=== PATIENT | male | born 1955 | race Caucasian/White ===

== ENCOUNTER 2017-05-26 13:22 | Inpatient (IN) ==
[2017-05-26 13:54] LABS: Basophils % 0.2 % (0.0-0.8); Hematocrit 36.7 VOL% (42.0-52.0); Hemoglobin 13.1 GM/DL (14.0-18.0); Immature Granulocytes % 0.7 %; Immature Granulocytes Absolute 0.13 #; Lymphocytes % 5.8 % (21.2-54.2); Mean Corpuscular HGB Conc 35.7 GM/DL (32-36); Mean Corpuscular Hemoglobin 32 PG (27-34); Mean Corpuscular Volume 89.5 FL (87-102); Mean Platelet Volume 9.3 FL (9.6-12.0); Monocytes % 5.7 % (1.7-12.7); Neutrophils # 15.6 10*3/uL (1.4-7.4); Neutrophils % 87.6 % (38.7-73.9); Platelet Count 192 T/CUMM (130-400); Red Cell Distribution Width 14.1 % (9.3-17.3); White Blood Count 17.8 T/CUMM (4-12)
[2017-05-26 14:34] LABS: Albumin 3.5 G/DL (3.4-5.0); Calcium 9.4 MG/DL (8.5-10.1); Osmolality,Calculated 260.1 MOS/KG (273-304); Potassium 3.5 MMOL/L (3.5-5.1); Total Protein 7.5 G/DL (6.4-8.3)
[2017-05-26] MEDS ORDERED: SODIUM CHLORIDE 0.9% 1,000 ML IV STA (14:44)
--- NOTE | 2017-05-26 14:46 | Emergency Department Note ---
Arrival - Arrival Chief Complaint: Nausea/Vomiting/Diarrhea Stated Complaint: weakness,n/v,can't hardly walk ED Nursing Triage Note: PT C/O N/V/D OFF AND ON X1 MONTH. PT REPORTS LAST NIGHT HE BEGAN SHAKING ALL OVER X 45 MINUTES. PT C/O PAIN TO NECK/THROAT- PT HAS THROAT CANCER THAT DR PEDRO REMOVED 8 MONTHS AGO Mode of Arrival: Ambulatory Limitations: No Limitations Source: Patient Time Seen by Provider: 05/26/17 14:25 - History of Present Illness HPI Narrative: The patient complains of nausea, vomiting and diarrhea for at least a month. States he has become very weak and can hardly walk. He also complains of shortness of breath which sounds like it is chronic due to his COPD. He has had a cough productive of white and yellow sputum. He complains of sore throat for the past 3 weeks. He does not know if he has had fever but has had chills. Last night he felt cold and began to have episodes of rigors. 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 He finished this 5-6 months ago. He had an appointment with Dr. Pedro yesterday regarding his sore throat but he skipped this. Allergies/Adverse Reactions: Allergies Allergy/AdvReac Type Severity Reaction Status Date / Time No Known Allergies Allergy Verified 05/26/17 13:31 Home Medications: Home Medications Medication Instructions Recorded Confirmed Type Budesonide/Formoterol 160-4.5 2 puff INH BID PRN 07/21/15 10/11/16 History [Symbicort 160-4.5] Albuterol Inhaler [Proventil 1 puff INH Q6H PRN #1 inhaler 10/11/16 Rx Inhaler] Albuterol Inhaler [Proventil 2 puff INH Q4H PRN 10/11/16 10/11/16 History Inhaler] Levofloxacin Tab [Levaquin Tab] 500 mg PO Q24H #7 tablet 10/11/16 Rx Omeprazole [Prilosec] 20 mg PO DAILY 10/11/16 10/11/16 History Promethazine/Dextromethorphan 240 ml PO Q4H PRN 10/11/16 10/11/16 History [Promethazine-Dm Syrup] methylPREDNISolone DOSEPAK [Medrol 4 mg PO DIRECTED #1 packet 10/11/16 Rx Dosepak] Review of System - Review of System 12 point system: reviewed and no additional remarkable complaints except as stated - Review of System Constitutional: Present: chills, weakness, weight loss. Absent: diaphoresis, fever Head/Ears/Nose/Throat: Present: sore throat. Absent: nasal drainage Respiratory: Present: cough. Absent: respiratory distress, wheezing Cardiovascular: Present: dyspnea on exertion. Absent: chest pain, palpitations , orthopnea, edema Gastrointestinal: Present: nausea, vomiting, diarrhea. Absent: abdominal pain, constipation, hematemesis, melena, hematochezia Genitourinary male: Absent: dysuria, hematuria Neurological: Present: weakness. 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) Respiratory: History of: COPD, Pneumonia (X2), Lung Cancer (probable) Gastrointestinal: History of: GERD, GI Problems (ULCERS) Hematology: No history of: Blood Transfusion Reaction Other: History of: Cancer (vocal cord cancer) No history of: Anesthesia Reactions - Surgical History Neurologic Surgeries: Surgical HX of: Cerebral Hemorrhage (SUBDURAL HEMATOMA 1993), Neurologic Surgery (SUBDURAL HEMATOMA) HEENT Surgeries: Surgical HX of: Tonsilectomy & Adenoidectomy Abdominal Surgeries: Surgical HX of: Abdominal Surgery, EGD, Hernia Repair (X2 AT AGE 9) Orthopedic Surgeries: Surgical HX of;: Orthopedic Surgery (JAW SURGERY TO REAPIR BROKEN JAW 2012) - Family History Family History: noncontributory - Social History Smoking Status: Current every day smoker Frequency of Alcohol Use: Frequently (At least 6 pack per day) Type of Drug Use: None Exam Physical Examination: GENERAL: Alert. No acute distress. Thin, frail, chronically ill-appearing. HEENT: Normocephalic and atraumatic. There is no nasal drainage. No pharyngeal erythema or exudate. Voice is hoarse. NECK: Normal inspection. No lymphadenopathy or meningismus. Positive right anterior cervical tenderness. LUNGS: No respiratory distress. Clear to auscultation bilaterally, no wheezes, rales or rhonchi. HEART: Regular rate and rhythm. ABDOMEN: Soft, nontender and nondistended with normoactive bowel sounds. BACK: Normal inspection. SKIN: Color normal. Warm and dry. EXTREMITIES: Nontender. Normal range of motion. No pedal edema. NEUROLOGICAL/PSYCHIATRIC: Alert and oriented -3 with normal mood and affect. Cranial nerves normal. No motor or sensory deficit. Vital Signs: Vital Signs Temperature 99.6 F 05/26/17 13:47 Pulse Rate 88 05/26/17 14:47 Respiratory Rate 18 05/26/17 14:47 Blood Pressure 114/91 05/26/17 14:47 O2 Sat by Pulse Oximetry 98 05/26/17 13:27 Course - Reevaluation(s) Reevaluation #1: I have discussed the patient with the hospitalist service who will see him and admit. Time: 15:32 Results - Labs CBC & BMP: 05/26/17 13:43 05/26/17 13:43 Lab Results: I have reviewed the patients labs Labs: Laboratory Tests 05/26/17 05/26/17 05/26/17 13:43 13:43 14:58 Total Bilirubin 1.00 AST 81 H ALT 70 H Alkaline Phosphatase 71 Amylase 41 Lipase 96.0 Urine Leukocytes Negative Urine RBC <1 Urine WBC 1 Ur Culture Indicated? Not indicated Serum Alcohol < 15 L Laboratory Tests 05/26/17 14:58 Lactic Acid 2.6 H Microbiology 05/26/17 15:00 Throat Group A Streptococcus Rapid Screen - Final Negative for Grp A Strep Ag - Impressions Chest x-ray:Evidence of COPD with pulmonary hyperinflation. Developing left upper lobe pneumonia. CT of the neck shows:1. Slight soft tissue fullness along the left aspect of the subglottic larynx posteriorly. This is more prominent than seen on the previous study. No discrete measurable mass can be delineated. Direct inspection is recommended. 2. Left upper lobe pneumonia superimposed on COPD. Disposition Clinical Impression: Dehydration, Malnutrition, Vomiting, Pneumonia, Head and neck cancer, Hyponatremia, Weakness Case discussed with: patient Disposition: Still a Patient Condition: Stable Time of Disposition: 15:33
--- NOTE | 2017-05-26 15:10 | XRay Report ---
XR chest 1V portable Indication: Dyspnea. Chest one view: Comparison 10/11/2016. Pulmonary hyperinflation with emphysematous changes again shown. More focal infiltrate is developing left upper lobe laterally. Pleural spaces are clear. Heart size remains normal. Impression: Evidence of COPD with pulmonary hyperinflation. Developing left upper lobe pneumonia. PROCEDURE INTERPRETED AT [facility] DEPARTMENT OF RADIOLOGY Final Report Signed by: Terrance Lyon M.D.
[2017-05-26 15:22] LABS: Apearance,Urine CLEAR (Clear); Bilirubin,Urine Negative (Negative); Blood, Urine Negative (Negative); Glucose,Urine (UA) Negative (Negative); Ketones,Urine Negative (Negative); Mucus,Urine Occasional /LPF (Occasional); Nitrite,Urine Negative (Negative); Protein,Urine Negative; RBC,Urine <1 /HPF (0-4); Squamous Epithelial Cell,Urine Occasional /HPF (0-10); Urine Color Yellow (Yellow); Urine Specific Gravity 1.014 (1.001-1.035); WBC,Urine 1 /HPF (0-6)
[2017-05-26 15:23] LABS: Amylase 41 U/L (25-115)
--- NOTE | 2017-05-26 15:33 | CT Report ---
CT of the soft tissues of the neck with intravenous contrast. 80 cc Omni 350. Indication: Throat pain. Supraglottic cancer. Comparison: October 22, 2015. Axial images were obtained with sagittal and coronal reconstructions. There has been a previous left temporal craniotomy. There is extensive postsurgical change involving the mandible. The paranasal sinuses and mastoid air cells are clear. There is no evidence of airway obstruction. Along the left aspect of the subglottic larynx, there is slight soft tissue fullness relative to the other side without a discrete measurable mass identified or fluid collection in this location. The thyroid gland is normal in size. The submandibular glands are normal in size. There is no parotid abnormality seen. The vascular structures are patent. Degenerative changes are present within the spinal column. No adenopathy is seen. There is pneumonia present in the left upper lobe. There are emphysematous changes seen bilaterally with prominent apical pleural scarring and irregularity. The thoracic aorta is of normal caliber where. Impression: 1. Slight soft tissue fullness along the left aspect of the subglottic larynx posteriorly. This is more prominent than seen on the previous study. No discrete measurable mass can be delineated. Direct inspection is recommended. 2. Left upper lobe pneumonia superimposed on COPD. The CT exam was performed using one or more of the following dose reduction techniques: Automated exposure control, adjustment of the mA and/or kV according to patient size, or use of iterative reconstruction technique. PROCEDURE INTERPRETED AT [facility] DEPARTMENT OF RADIOLOGY Final Report Signed by: Dr. Ijeoma Santos
[2017-05-26] MEDS ORDERED: cefTRIAXone 1,000 MG in SODIUM CHLORIDE 0.9% 100 ML IV STA (15:34)
[2017-05-26] MEDS ORDERED: cefTRIAXone 1,000 MG VIAL ONE (15:37)
[2017-05-26] MEDS ORDERED: ONDANSETRON 4 MG/2 ML VIAL IV PRN (15:50)
[2017-05-26] MEDS ORDERED: DEXTROSE 50% 25 GM/50 ML SYRINGE IV PRN (15:50)
[2017-05-26] MEDS ORDERED: GLUCAGON 1 MG VIAL IM PRN (15:50)
[2017-05-26] MEDS ORDERED: ALBUTEROL 2.5 MG/3 ML NEB RESP TX PRN (15:50)
--- NOTE | 2017-05-26 16:14 | Hospitalist History & Physical ---
Assessment and Plan (1) Severe sepsis Status: Acute Current Visit: Yes (2) Head and neck cancer Status: Acute Current Visit: Yes (3) Hyponatremia Status: Acute Current Visit: Yes (4) Malnutrition Status: Acute Current Visit: Yes (5) Pneumonia Status: Acute Current Visit: Yes (6) Weakness Status: Acute Current Visit: Yes (7) Alcohol dependence Status: Chronic Assessment and plan: We will admit the patient our service. By definition he meets the classification of severe sepsis although he is not hypotensive and does not need a fluid bolus. He is hyponatremic and feel that secondary to alcohol and beer consumption. He does have a developing pneumonia per chest x-ray. He had a CT scan of his neck which I am going to consult Dr. Pelaez about regarding some changes that need visualization. We will start him on IV antibiotics. We are going to repeat a lactate level in 3 hours from the initial lab drawn in the ER. Provide him with IV hydration. Patient looks severely malnourished. He drinks alcohol every day. We are going to put him on DVT prophylaxis. He still continues to smoke I recommended that he stop. We did have a discussion regarding this. Greater than 3 minutes was spent discussing this and I do feel that patient will not stop. Repeat labs in the morning and follow-up chest x- ray in 48 hours Current Visit: No History of Present Illness Chief complaint: Cough shortness of breath weakness History of present illness: Mr. Castellon is a 62 year old male with past medical history significant for throat cancer and COPD who has been dealing with weakness for the past 3-4 weeks. He says he is weak all the time. He has had a productive cough. His sputum seems like it has thickened lately. He began to have some shaking chills last night. He is undergone radiation therapy for a supra glottic cancer. This was finished out approximately 5-6 months ago. He did have appointment with Dr. call yesterday but was unable to make it secondary to sickness. I was consulted to admit the patient Home Medications Medication Instructions Recorded Confirmed Type Budesonide/Formoterol 160-4.5 2 puff INH BID PRN 07/21/15 10/11/16 History [Symbicort 160-4.5] Albuterol Inhaler [Proventil 1 puff INH Q6H PRN #1 inhaler 10/11/16 Rx Inhaler] Albuterol Inhaler [Proventil 2 puff INH Q4H PRN 10/11/16 10/11/16 History Inhaler] Levofloxacin Tab [Levaquin Tab] 500 mg PO Q24H #7 tablet 10/11/16 Rx Omeprazole [Prilosec] 20 mg PO DAILY 10/11/16 10/11/16 History Promethazine/Dextromethorphan 240 ml PO Q4H PRN 10/11/16 10/11/16 History [Promethazine-Dm Syrup] methylPREDNISolone DOSEPAK [Medrol 4 mg PO DIRECTED #1 packet 10/11/16 Rx Dosepak] Allergies Allergy/AdvReac Type Severity Reaction Status Date / Time No Known Allergies Allergy Verified 05/26/17 13:31 Medical,Surgical,& Family Hx - Medical History Neurology: History of: Cerebral Hemorrhage (SUBDURAL HEMATOMA 1993) No history of: Seizures HEENT: History of: Eye Problem (READING GLASSES), 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) Respiratory: History of: COPD, Pneumonia (X2), Lung Cancer (probable) Gastrointestinal: History of: GERD, GI Problems (ULCERS) Hematology: No history of: Blood Transfusion Reaction Other: History of: Cancer (vocal cord cancer) No history of: Anesthesia Reactions - Surgical History Neurologic Surgeries: Surgical HX of: Cerebral Hemorrhage (SUBDURAL HEMATOMA 1993), Neurologic Surgery (SUBDURAL HEMATOMA) HEENT Surgeries: Surgical HX of: Tonsilectomy & Adenoidectomy Abdominal Surgeries: Surgical HX of: Abdominal Surgery, EGD, Hernia Repair (X2 AT AGE 9) Reproductive Surgeries: Patient denies;: Genitourinary Surgery Orthopedic Surgeries: Surgical HX of;: Orthopedic Surgery (JAW SURGERY TO REAPIR BROKEN JAW 2012) - Family History Family History: Denies;: Family Cancer - Social History Smoking Status: Current every day smoker Frequency of Alcohol Use: Frequently (At least 6 pack per day) Type of Drug Use: None 12 point system: reviewed and no additional remarkable complaints except as stated Exam - Constitutional Vitals: Period Temp Pulse Resp BP Sys/Law Pulse Ox Last 24 Hr 98.0 F-99.6 F 84-110 18-20 114-129/80-91 98-99 General appearance: cachectic, disheveled - Head Head exam: Present: normal inspection - Eye Eye exam: Present: EOMI Pupils: Present: JOSE MARIA - ENT ENT exam: Present: normal exam - Respiratory Respiratory exam: Present: clear to auscultation bilaterally - Cardiovascular Cardiovascular exam: Present: regular rate and rhythm - GI/Abdominal GI/Abdominal exam: Present: normal bowel sounds - Extremities Exam Extremities exam: Present: normal inspection - Back Exam Back exam: Present: normal inspection - Neurological Exam Neurological exam: Present: alert, oriented X3 - Psychiatric Psychiatric exam: Present: normal affect, normal mood Results - Labs CBC & BMP: 05/26/17 13:43 05/26/17 13:43
[2017-05-26] MEDS ORDERED: BUDESONIDE/FORMOTEROL 160-4.5 INHALER 6 GM INH PRN (16:21)
[2017-05-26] MEDS: INSULIN REGULAR 100 UNIT/ML SUBCUT SCH ×2 (17:13→21:38)
[2017-05-26] MEDS: methylPREDNISolone SOD SUC 40 MG/1 ML VIAL IV SCH (17:44)
[2017-05-26] MEDS: AZITHROMYCIN INJ 500 MG in SODIUM CHLORIDE 0.9% 250 ML IV SCH (17:44)
[2017-05-26] MEDS: SODIUM CHLORIDE 0.9% 1,000 ML IV SCH (17:45)
[2017-05-26] MEDS: ENOXAPARIN 40 MG/0.4 ML SYRINGE SUBCUT SCH (18:13)
[2017-05-26] MEDS: ALBUTEROL/IPRATROPIUM 3 ML NEB RESP TX SCH (19:37)
[2017-05-27] MEDS: methylPREDNISolone SOD SUC 40 MG/1 ML VIAL IV SCH ×3 (01:21→17:28)
[2017-05-27] MEDS: ALBUTEROL/IPRATROPIUM 3 ML NEB RESP TX SCH ×4 (01:52→19:13)
[2017-05-27] MEDS: SODIUM CHLORIDE 0.9% 1,000 ML IV SCH ×2 (04:28→14:03)
[2017-05-27 06:43] LABS: Basophils % 0.1 % (0.0-0.8); Hematocrit 30.4 VOL% (42.0-52.0); Hemoglobin 10.6 GM/DL (14.0-18.0); Immature Granulocytes % 1.9 %; Immature Granulocytes Absolute 0.31 #; Lymphocytes # 0.4 10*3/uL (1.4-4.0); Lymphocytes % 2.6 % (21.2-54.2); Mean Corpuscular HGB Conc 34.9 GM/DL (32-36); Mean Corpuscular Hemoglobin 32 PG (27-34); Mean Corpuscular Volume 90.5 FL (87-102); Mean Platelet Volume 9.7 FL (9.6-12.0); Monocytes # 0.2 10*3/uL (0.11-0.8); Monocytes % 1.1 % (1.7-12.7); Neutrophils # 15.6 10*3/uL (1.4-7.4); Neutrophils % 94.3 % (38.7-73.9); Platelet Count 164 T/CUMM (130-400); Red Blood Count 3.36 MC/CUMM (3.8-5.5); Red Cell Distribution Width 14.1 % (9.3-17.3); White Blood Count 16.5 T/CUMM (4-12)
[2017-05-27 07:15] LABS: Albumin 2.7 G/DL (3.4-5.0); Bilirubin,Total 0.6 MG/DL (0.2-1.0); Potassium 3.5 MMOL/L (3.5-5.1)
[2017-05-27 07:59] LABS: Band Neutrophils 6 % (0-10); Lymphocytes 1 % (20-55); Platelet Estimate Normal; Segmented Neutrophils 91 % (50-85); Total Cells Counted 100
[2017-05-27 08:00] LABS: Giant Platelets Few; Hypochromasia 1+
[2017-05-27] MEDS: INSULIN REGULAR 100 UNIT/ML SUBCUT SCH ×4 (08:26→20:48)
[2017-05-27] MEDS: PANTOPRAZOLE 40 MG TABLET PO SCH (08:26)
[2017-05-27] MEDS: MULTIVITAMIN (CENTRUM) TABLET PO SCH (08:26)
[2017-05-27] MEDS: FOLIC ACID 1 MG TABLET PO SCH (08:26)
[2017-05-27] MEDS: THIAMINE 100 MG TABLET PO SCH (09:38)
--- NOTE | 2017-05-27 10:32 | Hospitalist Progress Note ---
Exam - Constitutional Vitals: Period Temp Pulse Resp BP Sys/Law Pulse Ox Last 24 Hr 97.6 F-99.6 F 62-110 16-20 101-136/56-91 97-99 Results - Labs CBC & BMP: 05/27/17 06:29 05/27/17 06:29 Specialty Discharge - Follow Up or Referrals
--- NOTE | 2017-05-27 11:28 | Hospitalist Progress Note ---
Assessment and Plan (1) Severe sepsis Status: Acute Assessment and plan: His WBC is trending downwards,throat strep was negative.CXR showed developing left upper lobe pneumonia. Plan continue with IV antibiotics, follow cultures Current Visit: Yes (2) Pneumonia Status: Acute Assessment and plan: CXR and CT showed Left upper lobe pneumonia superimposed on COPD. Plan Continue with bronchodilators, IV antibiotics and steroids Current Visit: Yes (3) COPD (chronic obstructive pulmonary disease) Status: Acute Assessment and plan: and Patient is still smoking. Plan continue current regime, he has been counseled to quit smoking. Continue with Nicotine patch Current Visit: Yes (4) Head and neck cancer Status: Acute Assessment and plan: Dr Pelaez to see Current Visit: Yes (5) Alcohol dependence Status: Chronic Assessment and plan: continue with banana bag, DT prophylaxis. He has been counseled. Current Visit: No (6) Hyponatremia Status: Acute Assessment and plan: resolved Current Visit: Yes (7) Malnutrition Status: Acute Assessment and plan: Follow Dietitian consult Current Visit: Yes (8) Diabetes Status: Acute Assessment and plan: will get A1c level, continue with SSC and accu cheks Current Visit: Yes Hospitalist: Subjective Interval history: Patient seen this am. He states he feels better. His WBC is decreasing. He wants Dr Pelaez to see him since he missed his outpt appointment yesterday. Exam - Constitutional Vitals: Period Temp Pulse Resp BP Sys/Law Pulse Ox Last 24 Hr 97.6 F-99.6 F 62-110 16-20 101-136/56-91 97-99 General appearance: no acute distress - Head Head exam: Present: normal inspection - Eye Eye exam: Present: EOMI - Respiratory Respiratory exam: Present: clear to auscultation bilaterally - Cardiovascular Cardiovascular exam: Present: regular rate and rhythm - GI/Abdominal GI/Abdominal exam: Present: normal bowel sounds - Extremities Exam Extremities exam: Present: normal inspection Results - Labs CBC & BMP: 05/27/17 06:29 05/27/17 06:29 Lab Results: I have reviewed the past 24 hour labs Specialty Discharge - Follow Up or Referrals
--- NOTE | 2017-05-27 12:24 | Consultation ---
Assessment and Plan - Time spent with patient Time spent discussing smoking cessation with patient: 3 to 10 minutes (1) Head and neck cancer Status: Acute Assessment and plan: Bedside laryngoscopy performed to evaluate the larynx in comparison to the CT findings good clinical correlation with a normal post radiated larynx with no evidence of recurrence on laryngoscopy at this time. I recommend he follow-up with me in 3 months. I did spend 3 minutes discussing tobacco cessation as we usually do and he is resistant to wanting to proceed with this. Thank you very much for this consult I will sign off on this patient by remain available if there is any questions or concerns Current Visit: Yes (2) Neck pain Status: Acute Current Visit: Yes (3) Tobacco use disorder, continuous Status: Acute Current Visit: Yes (4) Alcohol dependence Status: Chronic Current Visit: No (5) Malnutrition Status: Acute Current Visit: Yes (6) Pneumonia Status: Acute Current Visit: Yes (7) Weakness Status: Acute Current Visit: Yes History of Present Illness - Data of Consult Patient: new to practice Consult date: 05/27/17 Requesting Physician: Terrance Arnold - Consult Narrative Reason for consult: Laryngeal cancer History of present illness: Mr. Castellon is a 62 year old male status post approximately 6 months from finishing radiation and chemo for laryngeal cancer. He missed his appointment with me in the office as he had fallen secondary to weakness and struck his throat on a chair he states. He came to the emergency room he was evaluated found to have a right lobe pneumonia in which he was admitted for treatment. ENT was consulted to evaluate the CT changes noted at the larynx with his history. CC: Tiana Watkins MD - Home Medications and Allergies Home Medications: Home Medications Medication Instructions Recorded Confirmed Type Omeprazole [Prilosec] 40 mg PO DAILY 10/11/16 05/26/17 History Budesonide/Formoterol 160-4.5 2 puff INH BID 05/26/17 05/26/17 History [Symbicort 160-4.5] Levothyroxine Tab [Synthroid Tab] 50 mcg PO DAILY@0700 05/26/17 05/26/17 History predniSONE TAB [PredniSONE] 10 mg PO QOTHER DAY 05/26/17 05/26/17 History Allergies/Adverse Reactions: Allergies Allergy/AdvReac Type Severity Reaction Status Date / Time No Known Allergies Allergy Verified 05/26/17 13:31 12 point system: reviewed and no additional remarkable complaints except as stated Medical,Surgical,& Family Hx - Medical History Neurology: History of: Cerebral Hemorrhage (SUBDURAL HEMATOMA 1993) No history of: Seizures HEENT: History of: Eye Problem (READING GLASSES), 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) Respiratory: History of: COPD, Pneumonia (X2), Lung Cancer (probable) Gastrointestinal: History of: GERD, GI Problems (ULCERS) Hematology: No history of: Blood Transfusion Reaction Other: History of: Cancer (vocal cord cancer) No history of: Anesthesia Reactions - Surgical History Neurologic Surgeries: Surgical HX of: Cerebral Hemorrhage (SUBDURAL HEMATOMA 1993), Neurologic Surgery (SUBDURAL HEMATOMA) HEENT Surgeries: Surgical HX of: Tonsilectomy & Adenoidectomy Abdominal Surgeries: Surgical HX of: Abdominal Surgery, EGD, Hernia Repair (X2 AT AGE 9) Reproductive Surgeries: Patient denies;: Genitourinary Surgery Orthopedic Surgeries: Surgical HX of;: Orthopedic Surgery (JAW SURGERY TO REAPIR BROKEN JAW 2012) - Family History Family History: Denies;: Family Cancer - Social History Smoking Status: Current every day smoker Frequency of Alcohol Use: Frequently Type of Drug Use: None Exam - Constitutional Vitals: Period Temp Pulse Resp BP Sys/Law Pulse Ox Last 24 Hr 97.6 F-99.6 F 62-110 16-20 101-136/56-91 97-100 General appearance: no acute distress, under weight - Head Head exam: Present: normal inspection, normocephalic - Eye Eye exam: Present: EOMI Pupils: Present: JOSE MARIA - ENT ENT exam: Present: normal exam, normal external ear exam, normal oropharynx, other (Bedside laryngoscopy performed revealing a normal post radiated larynx with secondary edema consistent with postradiation no evidence of recurrence of laryngeal cancer. This is consistent with the CT. Patient does continue to smoke unfortunately and I spent 3 minutes discussing cessation with him.) - Neck Neck exam: Present: normal inspection (Postradiation) - Respiratory Respiratory exam: Present: other (Noted pneumonia per hospitalist chart no gross shortness of breath or difficulty breathing) - GI/Abdominal GI/Abdominal exam: Present: soft - Extremities Exam Extremities exam: Present: normal inspection, normal capillary refill - Neurological Exam Neurological exam: Present: alert, oriented X3, CN II-XII intact - Psychiatric Psychiatric exam: Present: normal affect, normal mood - Skin Skin exam: Present: normal color, warm Results - Labs CBC & BMP: 05/27/17 06:29 05/27/17 06:29 Lab Results: I have reviewed the past 24 hour labs - Diagnostic Findings Procedure: CT: pending, image reviewed by me, report reviewed by me (Correlates clinically with the post radiated larynx under laryngoscopy.) Specialty Discharge - Follow Up or Referrals
[2017-05-27] MEDS: NICOTINE 21 MG/24 HR PATCH TRANSDERM SCH (12:44)
[2017-05-27] MEDS: cefTRIAXone 1,000 MG in SODIUM CHLORIDE 0.9% 100 ML IV SCH (16:45)
[2017-05-27] MEDS: ENOXAPARIN 40 MG/0.4 ML SYRINGE SUBCUT SCH (17:28)
[2017-05-27] MEDS: AZITHROMYCIN INJ 500 MG in SODIUM CHLORIDE 0.9% 250 ML IV SCH (17:28)
[2017-05-27] MEDS: LORazepam 1 MG TABLET PO PRN (19:21)
[2017-05-28] MEDS: ALBUTEROL/IPRATROPIUM 3 ML NEB RESP TX SCH ×4 (00:23→18:58)
[2017-05-28] MEDS: SODIUM CHLORIDE 0.9% 1,000 ML IV SCH ×2 (00:25→08:49)
[2017-05-28] MEDS: methylPREDNISolone SOD SUC 40 MG/1 ML VIAL IV SCH ×4 (00:26→23:34)
[2017-05-28 06:48] LABS: Basophils % 0.1 % (0.0-0.8); Hematocrit 27.7 VOL% (42.0-52.0); Hemoglobin 9.7 GM/DL (14.0-18.0); Immature Granulocytes % 1.1 %; Immature Granulocytes Absolute 0.18 #; Lymphocytes # 0.4 10*3/uL (1.4-4.0); Lymphocytes % 2.4 % (21.2-54.2); Mean Corpuscular Hemoglobin 32 PG (27-34); Mean Corpuscular Volume 90.2 FL (87-102); Mean Platelet Volume 9.5 FL (9.6-12.0); Monocytes # 0.3 10*3/uL (0.11-0.8); Monocytes % 1.9 % (1.7-12.7); Neutrophils # 15.7 10*3/uL (1.4-7.4); Neutrophils % 94.5 % (38.7-73.9); Platelet Count 165 T/CUMM (130-400); Red Blood Count 3.07 MC/CUMM (3.8-5.5); Red Cell Distribution Width 14.3 % (9.3-17.3); White Blood Count 16.6 T/CUMM (4-12)
[2017-05-28 07:11] LABS: Calcium 7.8 MG/DL (8.5-10.1); Osmolality,Calculated 273.1 MOS/KG (273-304); Potassium 3.4 MMOL/L (3.5-5.1)
[2017-05-28 07:25] LABS: Band Neutrophils 1 % (0-10); Hypochromasia 1+; Lymphocytes 2 % (20-55); Microcytosis Slight; Platelet Estimate Adequate; Segmented Neutrophils 96 % (50-85); Total Cells Counted 100
[2017-05-28] MEDS: PANTOPRAZOLE 40 MG TABLET PO SCH (08:48)
[2017-05-28] MEDS: LORazepam 1 MG TABLET PO PRN ×2 (08:48→20:54)
[2017-05-28] MEDS: INSULIN REGULAR 100 UNIT/ML SUBCUT SCH ×4 (08:48→21:07)
[2017-05-28] MEDS: THIAMINE 100 MG TABLET PO SCH (08:48)
[2017-05-28] MEDS: FOLIC ACID 1 MG TABLET PO SCH (08:48)
[2017-05-28] MEDS: MULTIVITAMIN (CENTRUM) TABLET PO SCH (08:48)
[2017-05-28] MEDS: NICOTINE 21 MG/24 HR PATCH TRANSDERM SCH (08:49)
--- NOTE | 2017-05-28 09:50 | XRay Report ---
XR chest 1V portable Indication: Pneumonia. Chest one view: Comparison 2 days ago shows continued worsening of infiltrate lateral left upper lobe. Pulmonary hyperinflation, borderline cardiomegaly and tortuous thoracic aorta are stable. Impression: Progressive left upper lobe pneumonia. PROCEDURE INTERPRETED AT [facility] DEPARTMENT OF RADIOLOGY Final Report Signed by: Terrance Lyon M.D.
--- NOTE | 2017-05-28 10:21 | Hospitalist Progress Note ---
Assessment and Plan (1) Severe sepsis Status: Acute Assessment and plan: His WBC is stable, no fever,throat strep was negative.CXR showed developing left upper lobe pneumonia.Throat culture and BC were negative Plan continue with IV antibiotics, follow cultures Current Visit: Yes (2) Pneumonia Status: Acute Assessment and plan: CXR and CT showed Left upper lobe pneumonia superimposed on COPD. Plan Continue with bronchodilators, IV antibiotics and steroids Current Visit: Yes (3) COPD (chronic obstructive pulmonary disease) Status: Acute Assessment and plan: and Patient is still smoking. Plan continue current regime, he has been counseled to quit smoking though he insist he will continue. Continue with Nicotine patch Current Visit: Yes (4) Head and neck cancer Status: Acute Assessment and plan: Dr Pelaez saw yesterday. Current Visit: Yes (5) Alcohol dependence Status: Chronic Assessment and plan: continue with banana bag, DT prophylaxis. He has been counseled, he drinks about 2-18 bottles of beer daily and he is not ready to quit. Current Visit: No (6) Hyponatremia Status: Acute Assessment and plan: resolved Current Visit: Yes (7) Malnutrition Status: Acute Assessment and plan: Follow Dietitian consult Current Visit: Yes (8) Diabetes Status: Acute Assessment and plan: HbA1c level-5.5, continue with SSC and accu cheks Current Visit: Yes Hospitalist: Subjective Interval history: Patient seen this am. He was sitting up in bed, eating his breakfast.He coughed up a bloody purulent sputum this am. Exam - Constitutional Vitals: Period Temp Pulse Resp BP Sys/Law Pulse Ox Last 24 Hr 97.9 F-98.9 F 62-94 16-20 106-142/64-88 97-100 General appearance: no acute distress - Respiratory Respiratory exam: Present: decreased breath sounds - Cardiovascular Cardiovascular exam: Present: regular rate and rhythm - GI/Abdominal GI/Abdominal exam: Present: hypoactive bowel sounds - Extremities Exam Extremities exam: Present: normal inspection - Neurological Exam Neurological exam: Present: alert, oriented X3 Results - Labs CBC & BMP: 05/28/17 06:36 05/28/17 06:36 Lab Results: I have reviewed the past 24 hour labs Specialty Discharge - Follow Up or Referrals Follow up with: Sergio Pelaez DO [Physician] - (Needs 3 month followup)
[2017-05-28] MEDS ORDERED: POTASSIUM CHLORIDE 20 MEQ TABLET PO ONE (10:27)
[2017-05-28] MEDS ORDERED: POTASSIUM CHLORIDE 20 MEQ/15 ML UDCUP PO ONE (11:00)
[2017-05-28] MEDS: ENOXAPARIN 40 MG/0.4 ML SYRINGE SUBCUT SCH (16:18)
[2017-05-28] MEDS: AZITHROMYCIN 250 MG TABLET PO SCH (16:18)
[2017-05-28] MEDS: cefTRIAXone 1,000 MG in SODIUM CHLORIDE 0.9% 100 ML IV SCH (16:18)
[2017-05-29] MEDS: ALBUTEROL/IPRATROPIUM 3 ML NEB RESP TX SCH ×4 (00:32→18:56)
[2017-05-29 07:44] LABS: Hematocrit 28.6 VOL% (42.0-52.0); Immature Granulocytes % 2.2 %; Immature Granulocytes Absolute 0.21 #; Lymphocytes # 0.4 10*3/uL (1.4-4.0); Mean Corpuscular Hemoglobin 32 PG (27-34); Mean Corpuscular Volume 91.4 FL (87-102); Mean Platelet Volume 10.2 FL (9.6-12.0); Monocytes # 0.2 10*3/uL (0.11-0.8); Monocytes % 1.8 % (1.7-12.7); Neutrophils # 8.6 10*3/uL (1.4-7.4); Platelet Count 198 T/CUMM (130-400); Red Blood Count 3.13 MC/CUMM (3.8-5.5); Red Cell Distribution Width 14.5 % (9.3-17.3); White Blood Count 9.3 T/CUMM (4-12)
[2017-05-29 08:13] LABS: Calcium 8.4 MG/DL (8.5-10.1); Potassium 3.7 MMOL/L (3.5-5.1)
[2017-05-29] MEDS: THIAMINE 100 MG TABLET PO SCH (08:17)
[2017-05-29] MEDS: FOLIC ACID 1 MG TABLET PO SCH (08:17)
[2017-05-29] MEDS: MULTIVITAMIN (CENTRUM) TABLET PO SCH (08:17)
[2017-05-29] MEDS: LORazepam 1 MG TABLET PO PRN ×3 (08:17→21:00)
[2017-05-29] MEDS: methylPREDNISolone SOD SUC 40 MG/1 ML VIAL IV SCH ×3 (08:18→23:31)
[2017-05-29] MEDS: NICOTINE 21 MG/24 HR PATCH TRANSDERM SCH (08:18)
[2017-05-29] MEDS: INSULIN REGULAR 100 UNIT/ML SUBCUT SCH ×4 (08:18→21:00)
[2017-05-29] MEDS: SODIUM CHLORIDE 0.9% 1,000 ML IV SCH (08:20)
[2017-05-29] MEDS: PANTOPRAZOLE 40 MG TABLET PO SCH (08:21)
[2017-05-29 08:25] LABS: Lymphocytes 1 % (20-55); Microcytosis Slight; Segmented Neutrophils 96 % (50-85); Total Cells Counted 100
[2017-05-29 08:26] LABS: Hypochromasia Slight; Platelet Estimate Adequate
--- NOTE | 2017-05-29 11:16 | Hospitalist Progress Note ---
Assessment and Plan (1) Severe sepsis Status: Acute Assessment and plan: His WBC is stable, no fever,throat strep was negative.CXR showed developing left upper lobe pneumonia.Throat culture and BC were negative Plan continue with IV antibiotics, follow cultures Current Visit: Yes (2) Pneumonia Status: Acute Assessment and plan: CXR and CT showed Left upper lobe pneumonia superimposed on COPD. Plan Continue with bronchodilators, IV antibiotics and steroids Current Visit: Yes (3) COPD (chronic obstructive pulmonary disease) Status: Acute Assessment and plan: and Patient is still smoking. Plan continue current regime, he has been counseled to quit smoking though he insist he will continue. Continue with Nicotine patch Current Visit: Yes (4) Head and neck cancer Status: Acute Assessment and plan: Dr Pelaez has seen. Current Visit: Yes (5) Alcohol dependence Status: Chronic Assessment and plan: continue with banana bag, DT prophylaxis. He has been counseled, he drinks about 2-18 bottles of beer daily and he is not ready to quit. We will start Librium because patient may be trending towards withdrawal. Current Visit: No (6) Hyponatremia Status: Acute Assessment and plan: resolved Current Visit: Yes (7) Malnutrition Status: Acute Assessment and plan: Follow Dietitian consult Current Visit: Yes (8) Diabetes Status: Acute Assessment and plan: HbA1c level-5.5, continue with SSC and accu cheks Current Visit: Yes Hospitalist: Subjective Interval history: Patient states he feels weak this am and was a little shaky. Exam - Constitutional Vitals: Period Temp Pulse Resp BP Sys/Law Pulse Ox Last 24 Hr 97.8 F-98.9 F 72-94 16-20 123-147/51-81 95-100 General appearance: no acute distress, other (anxious) - Head Head exam: Present: normal inspection - Respiratory Respiratory exam: Present: clear to auscultation bilaterally - Cardiovascular Cardiovascular exam: Present: regular rate and rhythm - GI/Abdominal GI/Abdominal exam: Present: normal bowel sounds - Extremities Exam Extremities exam: Present: normal inspection - Neurological Exam Neurological exam: Present: alert, oriented X3 Results - Labs CBC & BMP: 05/29/17 06:08 05/29/17 06:08 Lab Results: I have reviewed the past 24 hour labs Specialty Discharge - Follow Up or Referrals Follow up with: Aull,Sergio, DO [Physician] - (Needs 3 month followup)
[2017-05-29] MEDS ORDERED: chlordiazePOXIDE 10 MG CAPSULE PO PRN (11:18)
[2017-05-29] MEDS: AZITHROMYCIN 250 MG TABLET PO SCH (16:44)
[2017-05-29] MEDS: ENOXAPARIN 40 MG/0.4 ML SYRINGE SUBCUT SCH (16:44)
[2017-05-29] MEDS: cefTRIAXone 1,000 MG in SODIUM CHLORIDE 0.9% 100 ML IV SCH (16:44)
[2017-05-30] MEDS: ALBUTEROL/IPRATROPIUM 3 ML NEB RESP TX SCH ×4 (00:33→19:42)
[2017-05-30] MEDS: SODIUM CHLORIDE 0.9% 1,000 ML IV SCH ×2 (07:37→13:04)
[2017-05-30] MEDS: THIAMINE 100 MG TABLET PO SCH (09:07)
[2017-05-30] MEDS: MULTIVITAMIN (CENTRUM) TABLET PO SCH (09:07)
[2017-05-30] MEDS: methylPREDNISolone SOD SUC 40 MG/1 ML VIAL IV SCH ×2 (09:08→16:17)
[2017-05-30] MEDS: NICOTINE 21 MG/24 HR PATCH TRANSDERM SCH (09:08)
[2017-05-30] MEDS: FOLIC ACID 1 MG TABLET PO SCH (09:08)
[2017-05-30] MEDS: PANTOPRAZOLE 40 MG TABLET PO SCH (09:08)
[2017-05-30] MEDS: INSULIN REGULAR 100 UNIT/ML SUBCUT SCH ×4 (09:09→21:30)
[2017-05-30] MEDS: DOCUSATE SODIUM 100 MG CAPSULE PO SCH (10:34)
--- NOTE | 2017-05-30 12:12 | Hospitalist Progress Note ---
Assessment and Plan (1) Severe sepsis Status: Acute Assessment and plan: His WBC is stable, no fever,throat strep was negative.CXR showed developing left upper lobe pneumonia.Throat culture and BC were negative Plan continue with IV antibiotics, follow cultures Current Visit: Yes (2) Pneumonia Status: Acute Assessment and plan: CXR and CT showed Left upper lobe pneumonia superimposed on COPD. Plan Continue with bronchodilators, IV antibiotics and steroids Hopefully dc in am Current Visit: Yes (3) COPD (chronic obstructive pulmonary disease) Status: Acute Assessment and plan: and Patient is still smoking. Plan continue current regime, he has been counseled to quit smoking though he insist he will continue. Continue with Nicotine patch Current Visit: Yes (4) Head and neck cancer Status: Acute Assessment and plan: Dr Pelaez has seen. Current Visit: Yes (5) Alcohol dependence Status: Chronic Assessment and plan: continue with banana bag, DT prophylaxis. He has been counseled, he drinks about 2-18 bottles of beer daily and he is not ready to quit. Stable, continue with current regime. Current Visit: No (6) Hyponatremia Status: Acute Assessment and plan: resolved Current Visit: Yes (7) Malnutrition Status: Acute Assessment and plan: Follow Dietitian consult Current Visit: Yes (8) Diabetes Status: Acute Assessment and plan: HbA1c level-5.5, continue with SSC and accu cheks Current Visit: Yes Hospitalist: Subjective Interval history: Patient seen this am, he was sitting up on a chair, he states he feels better. He apparently lives outside behind a bar on the porch on a chair for about 4months.. He states he feels ok living there but we have gotten the lead case manager involved to see how we can help. Exam - Constitutional Vitals: Period Temp Pulse Resp BP Sys/Law Pulse Ox Last 24 Hr 97.8 F-98.9 F 72-91 18-20 133-140/61-83 95-100 General appearance: no acute distress - Head Head exam: Present: normal inspection - Respiratory Respiratory exam: Present: clear to auscultation bilaterally - Cardiovascular Cardiovascular exam: Present: regular rate and rhythm - GI/Abdominal GI/Abdominal exam: Present: normal bowel sounds - Extremities Exam Extremities exam: Present: normal inspection - Neurological Exam Neurological exam: Present: alert, oriented X3 Results - Labs CBC & BMP: 05/29/17 06:08 08/20/17 06:08 Lab Results: I have reviewed the past 24 hour labs Specialty Discharge - Follow Up or Referrals Follow up with: Sergio Pelaez DO [Physician] - (Needs 3 month followup)
[2017-05-30] MEDS: cefTRIAXone 1,000 MG in SODIUM CHLORIDE 0.9% 100 ML IV SCH (16:17)
[2017-05-30] MEDS: AZITHROMYCIN 250 MG TABLET PO SCH (18:19)
[2017-05-30] MEDS: ENOXAPARIN 40 MG/0.4 ML SYRINGE SUBCUT SCH (19:02)
[2017-05-31] MEDS: ALBUTEROL/IPRATROPIUM 3 ML NEB RESP TX SCH ×3 (00:22→12:48)
[2017-05-31] MEDS: methylPREDNISolone SOD SUC 40 MG/1 ML VIAL IV SCH ×3 (00:26→16:33)
[2017-05-31] MEDS: SODIUM CHLORIDE 0.9% 1,000 ML IV SCH ×2 (06:21→16:32)
--- NOTE | 2017-05-31 07:54 | Case Mgmt Physician Query Form ---
TB Signs and Symptoms Screening ([place]) INSTRUCTIONS: To be completed annually on residents/staff with a significant Tuberculin Skin Test (TST) upon admission/hire or a prior significant TST. To be completed on all staff at hire. Please respond to each listed symptom with an (X) in either the "YES" or "NO" box. Do you currently have any of the following symptoms: YES NO ( ) (x ) A cough If yes, is it: ( ) Productive ( ) Non- productive ( ) (x ) Hemoptysis (spitting up blood) ( ) x( ) Chest pains ( ) (x ) Weight Loss ( ) (x ) Fever ( ) (x ) Night Sweats ( ) (x ) Weakness ( ) ( x) Loss of Appetite ( ) (x ) Difficulty Breathing If you answered YES" to any of the above questions, how long have symptoms been present? Comments: If you have any questions, please contact me . Thank you, Marilou MEIER Email: [email or web address] [facility]
[2017-05-31] MEDS: MULTIVITAMIN (CENTRUM) TABLET PO SCH (08:13)
[2017-05-31] MEDS: INSULIN REGULAR 100 UNIT/ML SUBCUT SCH ×3 (08:13→16:33)
[2017-05-31] MEDS: PANTOPRAZOLE 40 MG TABLET PO SCH (08:13)
[2017-05-31] MEDS: FOLIC ACID 1 MG TABLET PO SCH (08:13)
[2017-05-31] MEDS: THIAMINE 100 MG TABLET PO SCH (08:14)
[2017-05-31] MEDS: NICOTINE 21 MG/24 HR PATCH TRANSDERM SCH (08:14)
[2017-05-31] MEDS: DOCUSATE SODIUM 100 MG CAPSULE PO SCH (08:17)
[2017-05-31] MEDS ORDERED: TUBERCULIN SKIN TEST 0.1 ML SYRINGE INTRADERM ONE (08:48)
--- NOTE | 2017-05-31 09:52 | Discharge Summary ---
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 In ED: CXR: evidence of COPD with pulmonary hyperinflation, developing left upper lobe pneumonia. Soft tissue Neck CT: Slight soft tissue fullness along the left aspect of the subglottic larynx posteriorly, this is more prominent than seen on the previous study, no discrete measurable mass can be delineated, direct inspection is recommended, left upper lobe pneumonia superimposed on COPD. LABS: WBC 17.8, H&H 13.1 & 36.7, Na 128, Lactic Acid 2.6, AST 81, ALT 70 , Urine was negative for infection. Hospitalist was consulted for admission for severe sepsis and pneumonia. ENT consulted for follow with Neck CT scan changes. Dr Pelaez (ENT physician) performed bedside laryngoscopy with results: laryngoscopy performed to evaluate the larynx in comparison to the CT findings good clinical correlation with a normal post radiated larynx with no evidence of recurrence on laryngoscopy at this time. He was started on antibiotic therapy , IV hydration, alcohol withdrawal precautions, breathing treatments, nicotine patch, and supplemental oxygen. Throughout hospitalization patient has shown improvement. Quick Strep was negative. Throat culture final showed normal jazmin. Blood cultures showed no growth at 3 days. WBC down to 9.3, Electrolytes within normal ranges. .CXR showed developing left upper lobe pneumonia.CT showed Left upper lobe pneumonia superimposed on COPD.He received some IV antibiotics, steroids and bronchodilators.Blood glucose remains fairly controlled. No temperature elevation noted in the past 24 to 48 hours. Vital signs remain stable. He was counseled to quit drinking and smoking but patient didnt guaranty us that he wouldnt continue. He explained to us that he had been living outside behind a bar on a chair for about 4months. We got the case operator involved and she was trying to get him into a NH up until this am, when the patient then told us he was going to stay with his adopted sister and that he would fine. Today 05/31/17 patient remains afebrile, vital signs stable, labs improved and patient is feeling better. Patient will be discharged home today and will need to follow up with his primary care physician. He will need to follow up with Dr Pelaez: recommended in 3 months.We will get him home health. Specialty Discharge - Follow Up or Referrals Follow up with: Sergio Pelaez DO [Physician] - (Needs 3 month followup) Discharge Plan - Discharge Data Disposition: Home Health Service - Discharge Medications New chlordiazePOXIDE [Librium] 10 mg PO TID PRN #20 capsule PRN Reason: Alcohol Withdrawal Folic Acid Tab 1 mg PO DAILY #30 tablet Levofloxacin Tab [Levaquin Tab] 750 mg PO DAILY #7 tablet Multivitamin (Centrum) [Centrum Tab] 1 tablet PO DAILY #30 tablet Nicotine 21 mg/24 Hr Patch [Nicoderm CQ 21 mg/24 hr Patch] 1 patch TRANSDERM DAILY #7 patch Pantoprazole Tab [Protonix Tab] 40 mg PO DAILY #30 tablet Thiamine Tab [Vitamin B1 Tab] 100 mg PO DAILY #30 tablet Albuterol/Ipratropium Neb [Duoneb] 3 ml RESP TX RT Q6H #7 Budesonide/Formoterol 160-4.5 [Symbicort 160-4.5] 2 puff INH BID PRN #1 inhaler PRN Reason: Shortness Of Breath predniSONE TAB [PredniSONE] See Taper PO DAILY #14 tablet Continue Budesonide/Formoterol 160-4.5 [Symbicort 160-4.5] 2 puff INH BID Levothyroxine Tab [Synthroid Tab] 50 mcg PO DAILY@0700 Discontinued Omeprazole [Prilosec] 40 mg PO DAILY predniSONE TAB [PredniSONE] 10 mg PO QOTHER DAY - Follow Up or Referral Follow Up: Sergio Pelaez DO [Physician] - (Needs 3 month followup) - Forms/Instructions Instructions: How to Stop Smoking (GEN), Chronic Obstructive Pulmonary Disease (GEN), Cigarette Smoking and Your Health, [employer]inder (GEN) Exam - Constitutional Vitals: Period Temp Pulse Resp BP Sys/Law Pulse Ox Last 24 Hr 96.9 F-98.3 F 56-86 18-22 119-145/69-77 93-100 Discharge Results Procedures and tests throughout hospitalization: Pending Orders 05/26/17 14:58 Blood Culture Stat Labs on day of discharge: Labs from last 24 hours 05/31/17 05/31/17 05/30/17 11:25 07:20 19:32 POC Glucose 126 H 168 H 179 H 05/30/17 05/30/17 16:35 12:06 POC Glucose 186 H 120 H Preliminary micro results at discharge 05/26/17 14:58 Blood Culture - Preliminary Blood No growth at 3 days 05/26/17 14:58 Blood Culture - Preliminary Blood No growth at 3 days DS: Provider Date of admission: 05/26/17 15:50 Primary care physician: . No PCP Attending physician on admission: Terrance Arnold MD Consults: 05/26/17 15:50 Consult to Physician [CONS] Routine Comment: findings on CT scan and patient known to you Consulting Provider: Sergio Pelaez Person Notified: tessa Date Notified: 05/26/17 Time Notified: 16:29 Consult to Pulmonary Rehabilitation [CONS] Routine Reason for Pulmonary Rehabilitation: COPD 05/26/17 17:40 Consult to Dietitian [CONS] Routine Reason for Dietitian: Other Consult Comment: wt loss 05/27/17 09:16 Consult to Physician [CONS] Routine Comment: Consulting Provider: Sergio Pelaez Person Notified: TESSA Date Notified: 05/27/17 Time Notified: 10:46 05/27/17 14:20 Consult to Occupational Therapy [CONS] Routine Reason for Occupational Therapy: Evaluate and Treat Consult to Physical Therapy [CONS] Routine Reason for Physical Therapy: Evaluate and Treat Discharging clinician: Terra Shin NP <Tiana Watkins - Last Filed: 05/31/17 12:07> Hospital Course - Time spent with patient Time with patient DS: Greater than 30 minutes (Time spent: 35mins) Diagnosis - Discharge Diagnosis (1) Severe sepsis Status: Acute (2) Pneumonia Status: Acute (3) COPD (chronic obstructive pulmonary disease) Status: Acute (4) Head and neck cancer Status: Acute (5) Alcohol dependence Status: Chronic (6) Hyponatremia Status: Acute (7) Malnutrition Status: Acute (8) Diabetes Status: Acute Discharge Plan - Discharge Data Condition at Discharge: Stable Discharge Diet: advance to your usual diet Activity: resume usual activities as tolerated - Forms/Instructions Additional Discharge Instructions: follow with PCP in 1week, follow Dr Pelaez as scheduled Exam - Constitutional General appearance: no acute distress - Respiratory Respiratory exam: Present: clear to auscultation bilaterally - Cardiovascular Cardiovascular exam: Present: regular rate and rhythm - GI/Abdominal GI/Abdominal exam: Present: normal bowel sounds - Extremities Exam Extremities exam: Present: normal inspection - Neurological Exam Neurological exam: Present: alert, oriented X3
[2017-05-31 11:59] VITALS: BP 132/74
[2017-05-31] MEDS: cefTRIAXone 1,000 MG in SODIUM CHLORIDE 0.9% 100 ML IV SCH (16:32)
== END 2017-05-31 16:00 | disposition home health service (06) | DRG 720 ==
LOC: N.ED 13:22 → N.EDINP 15:50 → SUATTDRO 15:50 → N.5E 16:15
PROVIDERS: ADMIT Internal Medicine; ATTEND Internal Medicine

== ENCOUNTER 2017-06-23 14:55 | Inpatient (IN) ==
[2017-06-23] MEDS ORDERED: ALBUTEROL/IPRATROPIUM 3 ML NEB RESP TX STA (15:26)
--- NOTE | 2017-06-23 15:57 | XRay Report ---
History: Shortness of breath Date: 06/23/2017 Study: Chest x-ray PA and lateral Comparison exam: June 10, 2017 The cardiac silhouette is not enlarged. There is no mediastinal mass. There is bilateral hilar retraction. There is chronic parenchymal and pleural disease in the lung apices, left more than right. There is a more acute area of parenchymal consolidation in the left lung apex which is progressively worsened since May 26, 2017 and was not present on October 11, 2016. There are scattered emphysematous changes. There is no layering pleural effusion. Osseous structures are unchanged. Impression: Worsening left upper lobe pneumonia compared to May 26, 2017. Consider TB and fungal disease as etiologies. Chronic lung changes otherwise PROCEDURE INTERPRETED AT [facility] DEPARTMENT OF RADIOLOGY Final Report Signed by: Dr. Shivani Daiely
[2017-06-23] MEDS ORDERED: LEVOFLOXACIN INJ 500 MG in PREMIX 1 EACH IV STA (16:05)
--- NOTE | 2017-06-23 16:06 | Emergency Department Note ---
Frederick Mendes Brooke, am scribing for, and in the presence of, Noam Polanco MD 15:23. Sherri Mendes Phillip K, MD, personally performed the services described in this documentation, ascribed by Louisa Mack in my presence, and it is both accurate and complete [id number] . Arrival - Arrival Chief Complaint: Weakness Stated Complaint: Weak,hard to breathe, no energy ED Nursing Triage Note: Pt c/o his COPD getting worse with increased SOB, weakness, and leg weakness that has been getting worse for the last 5-6 months. Mode of Arrival: Wheelchair Limitations: No Limitations Source: Patient, RN Notes Reviewed Time Seen by Provider: 06/23/17 15:12 - History of Present Illness HPI Narrative: Patient is a 62 year old male who presents to the ED with c/o shortness of breath and cough. Patient currently has lung cancer and says he is always short of breath. Patient's cough is productive with "white and beige" mucous. He says he is unsure if he has had any fever. Patient was in the hospital, three weeks ago, with left lobe pneumonia. He says he did not take any abx once discharge because he was unable to get them. Patient is currently living "in the yard behind [facility] Patient is hoarse and says he has been since having cancer. He also has PMHx of COPD, subdural hematoma(1990), GERD, and GI ulcers. He is a smoker. Allergies/Adverse Reactions: Allergies Allergy/AdvReac Type Severity Reaction Status Date / Time No Known Allergies Allergy Verified 06/10/17 08:44 Home Medications: Home Medications Medication Instructions Recorded Confirmed Type Budesonide/Formoterol 160-4.5 2 puff INH BID 05/26/17 06/23/17 History [Symbicort 160-4.5] Levothyroxine Tab [Synthroid Tab] 50 mcg PO DAILY@0700 05/26/17 06/23/17 History Albuterol/Ipratropium Neb [Duoneb] 3 ml RESP TX RT Q6H #7 05/31/17 06/23/17 Rx Folic Acid Tab 1 mg PO DAILY #30 tablet 05/31/17 06/23/17 Rx Multivitamin (Centrum) [Centrum 1 tablet PO DAILY #30 tablet 05/31/17 06/23/17 Rx Tab] Pantoprazole Tab [Protonix Tab] 40 mg PO DAILY #30 tablet 05/31/17 06/23/17 Rx Thiamine Tab [Vitamin B1 Tab] 100 mg PO DAILY #30 tablet 05/31/17 06/23/17 Rx chlordiazePOXIDE [Librium] 10 mg PO TID PRN #20 capsule 05/31/17 06/23/17 Rx HYDROcodone/ACETAMIN 5-325 [[place] 1 tablet PO Q6H PRN #14 tablet 06/10/17 Rx 5-325] Review of System - Review of System 12 point system: reviewed and no additional remarkable complaints except as stated - Review of System Constitutional: Present: other (hoarse). Absent: fever Respiratory: Present: cough (productive), other (short of breath). 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) Respiratory: History of: COPD, Pneumonia (X2), Lung Cancer (probable) Gastrointestinal: History of: GERD, GI Problems (ULCERS) Hematology: No history of: Blood Transfusion Reaction Other: History of: Cancer (vocal cord cancer) No history of: Anesthesia Reactions - Surgical History Neurologic Surgeries: Surgical HX of: Cerebral Hemorrhage (SUBDURAL HEMATOMA 1993), Neurologic Surgery (SUBDURAL HEMATOMA) HEENT Surgeries: Surgical HX of: Tonsilectomy & Adenoidectomy Abdominal Surgeries: Surgical HX of: Abdominal Surgery, EGD, Hernia Repair (X2 AT AGE 9) Reproductive Surgeries: Patient denies;: Genitourinary Surgery Orthopedic Surgeries: Surgical HX of;: Orthopedic Surgery (JAW SURGERY TO REAPIR BROKEN JAW 2012) - Family History Family History: Denies;: Family Cancer - Social History Smoking Status: Current every day smoker Exam Vital Signs: Vital Signs Temperature 98.2 F 06/23/17 15:04 Pulse Rate 61 06/23/17 16:05 Respiratory Rate 20 06/23/17 16:05 Blood Pressure 141/81 06/23/17 15:04 O2 Sat by Pulse Oximetry 100 06/23/17 16:05 - General General appearance: alert, in no apparent distress - Head Head exam: Present: atraumatic, normocephalic - Eye Eye exam: Present: normal appearance, PERRL, EOMI - ENT ENT exam: Present: normal exam, mucous membranes moist - Neck Neck exam: Present: normal inspection - Chest Chest inspection: Present: normal inspection, symmetric chest wall rise - Respiratory Respiratory exam: Present: normal lung sounds bilaterally. Absent: rales, rhonchi, wheezes - Cardiovascular Cardiovascular exam: Present: regular rate, normal rhythm, normal heart sounds - Abdominal Exam Abdominal exam: Present: soft, normal bowel sounds. Absent: distention, tenderness - Extremities Exam Extremities exam: Present: normal inspection - Back Exam Back exam: Present: normal inspection - Neurological Exam Neurological exam: Present: alert, oriented X3 - Psychiatric Psychiatric exam: Present: normal affect, normal mood - Skin Skin exam: Present: warm, dry, intact, normal color Course Course Narrative: Patient discussed with the hospitalist. Results - Diagnostic Findings Procedure: Chest x-ray: report reviewed by me (Worsening of the left upper lobe pneumonia) Disposition Clinical Impression: Left upper lobe pneumonia, Tobacco abuse, COPD (chronic obstructive pulmonary disease), History of head and neck cancer Case discussed with: patient Disposition: Still a Patient Condition: Guarded Additional Instructions: Admit to the hospitalist. May need bronchoscopy.
[2017-06-23 16:34] LABS: Basophils % 0.8 % (0.0-0.8); Eosinophils % 0.8 % (0.00-10.9); Hematocrit 36.3 VOL% (42.0-52.0); Hemoglobin 12.5 GM/DL (14.0-18.0); Immature Granulocytes % 0.4 %; Immature Granulocytes Absolute 0.02 #; Lymphocytes # 1.4 10*3/uL (1.4-4.0); Lymphocytes % 27.2 % (21.2-54.2); Mean Corpuscular HGB Conc 34.4 GM/DL (32-36); Mean Corpuscular Hemoglobin 32 PG (27-34); Mean Corpuscular Volume 92.6 FL (87-102); Mean Platelet Volume 8.6 FL (9.6-12.0); Monocytes # 0.5 10*3/uL (0.11-0.8); Monocytes % 8.9 % (1.7-12.7); Neutrophils # 3.1 10*3/uL (1.4-7.4); Neutrophils % 61.9 % (38.7-73.9); Platelet Count 420 T/CUMM (130-400); Red Blood Count 3.92 MC/CUMM (3.8-5.5); Red Cell Distribution Width 15.1 % (9.3-17.3)
[2017-06-23 17:04] LABS: Albumin 3.2 G/DL (3.4-5.0); Bilirubin,Total 0.7 MG/DL (0.2-1.0); Calcium 8.9 MG/DL (8.5-10.1); Osmolality,Calculated 267.1 MOS/KG (273-304); Potassium 4.2 MMOL/L (3.5-5.1); Total Protein 7.2 G/DL (6.4-8.3)
[2017-06-23] MEDS ORDERED: LEVOFLOXACIN INJ 100 ML IV ONE (17:27)
[2017-06-23] MEDS ORDERED: TUBERCULIN SKIN TEST 0.1 ML SYRINGE INTRADERM ONE (17:27)
--- NOTE | 2017-06-23 17:36 | Hospitalist History & Physical ---
Assessment and Plan - Time spent with patient Time spent with patient: Greater than 30 minutes Time spent discussing smoking cessation with patient: 3 to 10 minutes (1) Left upper lobe pneumonia Status: Acute Assessment and plan: Mass in left upper lobe suspicious for worsening pneumonia or granulomatous disease. Admit patient for further evaluation and treatment. Continue IV antibiotics, breathing treatments. Obtain Chest CT, ppd. Consult pulmonolgy. Current Visit: Yes (2) Tobacco abuse Status: Acute Assessment and plan: Current everyday smoker Current Visit: Yes (3) History of head and neck cancer Status: Acute Assessment and plan: Patient remains hoarse from radiation therapy. Current Visit: Yes (4) COPD (chronic obstructive pulmonary disease) Status: Acute Current Visit: Yes History of Present Illness Chief complaint: worsening pna History of present illness: Mr. Castellon is a 62 year old white male with a past medical history significant for right COPD, pneumonia, head and neck cancer who presents to the ER today with shortness of breath and productive cough. This patient was recently admitted in mid May, treated for pneumonia and discharged home. However, the patient failed to disclose that he is homeless and was unable to have his prescription filled. He returns today with worsening shortness of breath and cough productive of white and brown sputum. He tells me that he lives behind a local bar and his current insurance only allows him to get six (6 ) prescriptions, which he had already met. Patient was given breathing treatments and started on IV levaquin in the ED. His lab work is significant for WBC 5.0, hemoglobin 12.5, hematocrit 36.3, sodium 135, serum glucose 92. Patient confirms SOB, pain on inspiration, and sputum production. He denies EUGENE, chest pain, abdominal pain, N/V/D, edema. He states that he wants to get into a senior care for assistance. This case has been discussed with ER physician and Dr. Wallace, admitting physician, and will be admitted to the hospital medicine service for further evaluation and treatment. CODE STATUS has been discussed; patient is a full code. Home medications have been reviewed and reconciled. Home Medications Medication Instructions Recorded Confirmed Type Budesonide/Formoterol 160-4.5 2 puff INH BID 05/26/17 06/23/17 History [Symbicort 160-4.5] Levothyroxine Tab [Synthroid Tab] 50 mcg PO DAILY@0700 05/26/17 06/23/17 History Albuterol/Ipratropium Neb [Duoneb] 3 ml RESP TX RT Q6H #7 05/31/17 06/23/17 Rx Folic Acid Tab 1 mg PO DAILY #30 tablet 05/31/17 06/23/17 Rx Multivitamin (Centrum) [Centrum 1 tablet PO DAILY #30 tablet 05/31/17 06/23/17 Rx Tab] Pantoprazole Tab [Protonix Tab] 40 mg PO DAILY #30 tablet 05/31/17 06/23/17 Rx Thiamine Tab [Vitamin B1 Tab] 100 mg PO DAILY #30 tablet 05/31/17 06/23/17 Rx chlordiazePOXIDE [Librium] 10 mg PO TID PRN #20 capsule 05/31/17 06/23/17 Rx HYDROcodone/ACETAMIN 5-325 [[place] 1 tablet PO Q6H PRN #14 tablet 06/10/17 Rx 5-325] Allergies Allergy/AdvReac Type Severity Reaction Status Date / Time No Known Allergies Allergy Verified 06/10/17 08:44 Medical,Surgical,& Family Hx - Medical History Neurology: History of: Cerebral Hemorrhage (SUBDURAL HEMATOMA 1993) No history of: Seizures HEENT: History of: Eye Problem (READING GLASSES), 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) Respiratory: History of: COPD, Pneumonia (X2), Lung Cancer (probable) Gastrointestinal: History of: GERD, GI Problems (ULCERS) Hematology: No history of: Blood Transfusion Reaction Other: History of: Cancer (vocal cord cancer) No history of: Anesthesia Reactions - Surgical History Neurologic Surgeries: Surgical HX of: Cerebral Hemorrhage (SUBDURAL HEMATOMA 1993), Neurologic Surgery (SUBDURAL HEMATOMA) HEENT Surgeries: Surgical HX of: Tonsilectomy & Adenoidectomy Abdominal Surgeries: Surgical HX of: Abdominal Surgery, EGD, Hernia Repair (X2 AT AGE 9) Reproductive Surgeries: Patient denies;: Genitourinary Surgery Orthopedic Surgeries: Surgical HX of;: Orthopedic Surgery (JAW SURGERY TO REAPIR BROKEN JAW 2012) - Family History Family History: Denies;: Family Cancer - Social History Smoking Status: Current every day smoker Have you smoked in the last 12 months: Yes Time spent discussing smoking cessation with patient: 3 to 10 minutes Frequency of Alcohol Use: Frequently Type of Drug Use: Unknown Marital Status: Single Lives With:: homeless Functional capacity: independent ambulation 12 point system: reviewed and no additional remarkable complaints except as stated Exam - Constitutional Vitals: Period Temp Pulse Resp BP Sys/Law Pulse Ox Last 24 Hr 98.2 F-98.2 F 59-67 20-20 141-141/81-81 99-100 Exam: General appearance: underweight, no acute distress - Head Head exam: Present: normocephalic, atraumatic - Eye Eye exam: Present: EOMI. Absent: conjunctival injection, nystagmus Pupils: Present: JOSE MARIA, normal accommodation - ENT ENT exam: Present: normal exam, normal external ear exam - Neck Neck exam: Present: normal inspection. Absent: lymphadenopathy, tenderness, thyromegaly - Respiratory Respiratory exam: Present: decreased breath sounds bilaterally. Absent: rales, rhonchi, wheezes - Cardiovascular Cardiovascular exam: Present: regular rate and rhythm. Absent: carotid bruit, gallop, rubs - GI/Abdominal GI/Abdominal exam: Present: normal bowel sounds. Absent: ascites, distended, mass - Extremities Exam Extremities exam: Present: normal inspection, normal capillary refill. Absent: edema - Back Exam Back exam: Absent: CVA tenderness (L), CVA tenderness (R) - Neurological Exam Neurological exam: Present: alert, oriented X3, CN II-XII intact, reflexes normal - Psychiatric Psychiatric exam: Present: normal affect, normal mood - Skin Skin exam: Present: normal color, warm, dry Results - Labs CBC & BMP: 06/23/17 16:24 06/23/17 16:24 Lab Results: I have reviewed the past 24 hour labs - Diagnostic Findings Procedure: Chest x-ray: image reviewed by me, report reviewed by me (worsening pna)
[2017-06-23] MEDS ORDERED: chlordiazePOXIDE 10 MG CAPSULE PO PRN (17:39)
[2017-06-23 18:23] LABS: Free T4 (Free Thyroxine) 1.38 NG/DL (0.76-1.46); Thyroid Stimulating Hormone 4.11 uIU/ml (0.358-3.74)
--- NOTE | 2017-06-23 18:38 | CT Report ---
History: Pulmonary mass. History of head and neck cancer Date: 06/23/2017 Study: CT chest with IV contrast Comparison exam: Outside CT chest from March 12, [address] sections were obtained through the lungs following the IV administration of 80 mL of Omnipaque 350 without immediate complication. There is a wedge-shaped area of confluent parenchymal consolidation in the left upper lobe posteriorly and laterally which measures at least 61 x 39 x 50 mm maximum dimensions. There is an area of cavitation measuring approximately 12 mm within the more superior medial aspect of this infiltrate. There is mild volume loss associated with either upper lobe, with slight bilateral hilar retraction. There is chronic parenchymal and pleural scarring in either lung apex. There are scattered changes of centrilobular and paraseptal emphysema. There are some occasional small scattered groundglass areas of infiltrate in either upper lobe and superior segment left lower lobe. There is no pleural or pericardial effusion. There is no mediastinal lymphadenopathy by short axis diameter criteria. Some small shotty lymph nodes are noted in the precarinal and AP window region as before. There is moderate coronary artery calcification with involvement of the left anterior descending coronary artery. Multicystic kidney changes noted in the partially visualized upper kidneys. Impression: Pleural-based area of atelectatic parenchymal consolidation in the left upper lobe. This is likely inflammatory in nature, though underlying cavitary neoplasm certainly cannot be completely excluded. Consider TB and fungal disease. Consider further evaluation with bronchoscopy. Emphysematous changes. Other findings detailed above The CT exam was performed using one or more of the following dose reduction techniques: Automated exposure control, adjustment of the mA and/or kV according to patient size, or use of iterative reconstruction technique. PROCEDURE INTERPRETED AT [facility] DEPARTMENT OF RADIOLOGY Final Report Signed by: Dr. Shivani Dailey
[2017-06-23] MEDS: ALBUTEROL/IPRATROPIUM 3 ML NEB RESP TX SCH (19:14)
[2017-06-23] MEDS ORDERED: ONDANSETRON 4 MG/2 ML VIAL IV PRN (20:02)
[2017-06-23] MEDS: SODIUM CHLORIDE 0.9% 1,000 ML IV SCH (20:20)
[2017-06-23] MEDS: BUDESONIDE/FORMOTEROL 160-4.5 INHALER 6 GM INH SCH (20:25)
[2017-06-24] MEDS: ALBUTEROL/IPRATROPIUM 3 ML NEB RESP TX SCH ×4 (00:32→20:02)
[2017-06-24] MEDS: SODIUM CHLORIDE 0.9% 1,000 ML IV SCH ×2 (04:50→15:33)
[2017-06-24] MEDS: LEVOTHYROXINE 50 MCG TABLET PO SCH (06:15)
[2017-06-24 06:28] LABS: Eosinophils # 0.1 10*3/uL (0.0-0.87); Eosinophils % 1.3 % (0.00-10.9); Hematocrit 32.1 VOL% (42.0-52.0); Hemoglobin 11.2 GM/DL (14.0-18.0); Immature Granulocytes % 0.8 %; Immature Granulocytes Absolute 0.03 #; Lymphocytes # 0.8 10*3/uL (1.4-4.0); Lymphocytes % 20.7 % (21.2-54.2); Mean Corpuscular HGB Conc 34.9 GM/DL (32-36); Mean Corpuscular Hemoglobin 32 PG (27-34); Mean Corpuscular Volume 92.5 FL (87-102); Mean Platelet Volume 8.5 FL (9.6-12.0); Monocytes # 0.5 10*3/uL (0.11-0.8); Neutrophils # 2.4 10*3/uL (1.4-7.4); Neutrophils % 62.2 % (38.7-73.9); Platelet Count 371 T/CUMM (130-400); Red Blood Count 3.47 MC/CUMM (3.8-5.5); Red Cell Distribution Width 14.9 % (9.3-17.3); White Blood Count 3.9 T/CUMM (4-12)
[2017-06-24 06:58] LABS: Calcium 8.4 MG/DL (8.5-10.1); Osmolality,Calculated 270.8 MOS/KG (273-304)
[2017-06-24] MEDS: MULTIVITAMIN (CENTRUM) TABLET PO SCH (10:02)
[2017-06-24] MEDS: FOLIC ACID 1 MG TABLET PO SCH (10:02)
[2017-06-24] MEDS: PANTOPRAZOLE 40 MG TABLET PO SCH (10:02)
[2017-06-24] MEDS: BUDESONIDE/FORMOTEROL 160-4.5 INHALER 6 GM INH SCH ×2 (10:03→20:24)
[2017-06-24] MEDS: THIAMINE 100 MG TABLET PO SCH (10:03)
--- NOTE | 2017-06-24 11:23 | Pulmonology Consult Note ---
Assessment and Plan (1) Alcohol dependence Status: Chronic Assessment and plan: The patient apparently has alcohol abuse and will have to be watched for DTs Current Visit: No (2) COPD (chronic obstructive pulmonary disease) Status: Acute Assessment and plan: The patient is a smoker with COPD and will continue with bronchodilator therapy. Current Visit: Yes (3) Tobacco use disorder, continuous Status: Acute Assessment and plan: He says he does not want to try nicotine patch at present Current Visit: No (4) Left upper lobe pneumonia Status: Acute Assessment and plan: The patient has a left upper lobe pneumonia that has been fairly indolent. He will be cultured for TB etc. We will cover him with broad-spectrum penicillin. He may need further workup if it does not clear. Current Visit: Yes (5) History of head and neck cancer Status: Acute Assessment and plan: The patient has a history of head and neck cancer. Current Visit: Yes History of Present Illness Chief complaint: Pneumonia History of present illness: Mr. Castellon is a 62 year old white male that apparently is a heavy smoker and drinker and is homeless. He has a history of having laryngeal CA and had radiation therapy in the past. He comes in with cough and congestion and has a left upper lobe pneumonia. He was in the hospital in May with a left upper lobe pneumonia but did not follow-up or take any other antibiotics. He has had a low-grade fever at times. He does cough up some sputum. His shortness of breath is not terrible. He says he is breathing comfortably at present. Home Medications Medication Instructions Recorded Confirmed Type Budesonide/Formoterol 160-4.5 2 puff INH BID 05/26/17 06/24/17 History [Symbicort 160-4.5] Levothyroxine Tab [Synthroid Tab] 50 mcg PO DAILY@0700 05/26/17 06/24/17 History Albuterol/Ipratropium Neb [Duoneb] 3 ml RESP TX RT Q6H #7 05/31/17 06/24/17 Rx Folic Acid Tab 1 mg PO DAILY #30 tablet 05/31/17 06/24/17 Rx Multivitamin (Centrum) [Centrum 1 tablet PO DAILY #30 tablet 05/31/17 06/24/17 Rx Tab] Pantoprazole Tab [Protonix Tab] 40 mg PO DAILY #30 tablet 05/31/17 06/24/17 Rx Thiamine Tab [Vitamin B1 Tab] 100 mg PO DAILY #30 tablet 05/31/17 06/24/17 Rx chlordiazePOXIDE [Librium] 10 mg PO TID PRN #20 capsule 05/31/17 06/24/17 Rx HYDROcodone/ACETAMIN 5-325 [[place] 1 tablet PO Q6H PRN #14 tablet 06/10/17 Rx 5-325] Allergies Allergy/AdvReac Type Severity Reaction Status Date / Time No Known Allergies Allergy Verified 06/24/17 01:23 - Constitutional Constitutional: Present: chills, fatigue, fever(s), weight loss - EENT Eyes: Absent: loss of vision Ears: Absent: decreased hearing Nose, mouth and throat: Absent: dysphagia, headache(s), sinus pressure - Cardiovascular Cardiovascular: Present: dyspnea on exertion. Absent: chest pain at rest, edema - Respiratory Respiratory: Present: cough, wheezing, change in phlegm color. Absent: hemoptysis, pain on inspiration - Gastrointestinal Gastrointestinal: Absent: abdominal pain, nausea, vomiting - Genitourinary Genitourinary: Absent: difficulty urinating, urinary frequency - Musculoskeletal Musculoskeletal: Absent: arthralgias - Neurological Neurological: Absent: confusion Exam (Pulmonay) H&P - Constitutional Vitals: Period Temp Pulse Resp BP Sys/Law Pulse Ox Last 24 Hr 98.2 F-99.6 F 59-75 18-21 112-141/63-81 98-100 General appearance: no acute distress (He is hoarse but looks comfortable lying in bed), under weight - Head Head exam: Present: normal inspection, normocephalic - Eye Eye exam: Present: EOMI. Absent: scleral icterus Pupils: Present: JOSE MARIA - ENT ENT exam: Present: other (He does have some hoarseness) - Neck Neck exam: Absent: lymphadenopathy, thyromegaly - Respiratory Respiratory exam: Present: decreased breath sounds, rhonchi, wheezes. Absent: accessory muscle use - Cardiovascular Cardiovascular exam: Present: regular rate and rhythm. Absent: gallop, systolic murmur - GI/Abdominal GI/Abdominal exam: Present: soft. 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) Respiratory: History of: COPD, Pneumonia (X2), Lung Cancer (probable) Gastrointestinal: History of: GERD, GI Problems (ULCERS) Hematology: No history of: Blood Transfusion Reaction Other: History of: Cancer (vocal cord cancer) No history of: Anesthesia Reactions - Surgical History Neurologic Surgeries: Surgical HX of: Cerebral Hemorrhage (SUBDURAL HEMATOMA 1993), Neurologic Surgery (SUBDURAL HEMATOMA) HEENT Surgeries: Surgical HX of: Tonsilectomy & Adenoidectomy Abdominal Surgeries: Surgical HX of: Abdominal Surgery, EGD, Hernia Repair (X2 AT AGE 9) Reproductive Surgeries: Patient denies;: Genitourinary Surgery Orthopedic Surgeries: Surgical HX of;: Orthopedic Surgery (JAW SURGERY TO REAPIR BROKEN JAW 2012) - Family History Family History: Denies;: Family Cancer - Social History Smoking Status: Current every day smoker Frequency of Alcohol Use: Frequently Type of Drug Use: Unknown Results - Labs CBC & BMP: 06/24/17 06:11 06/24/17 06:11 - Diagnostic Findings Procedure: Chest x-ray: image reviewed by me, report reviewed by me (Chest x- ray shows a left upper lobe infiltrate with some cavitation.), CT - chest: image reviewed by me, report reviewed by me (He has emphysematous changes in the left upper lobe infiltrate.) Quality Measures - VTE Contraindication to Pharmacological VTE Prophylaxis: Clinical assessment deems Pt at low risk, no prophalaxis needed
[2017-06-24] MEDS: AMPICILLIN/SULBACTAM 3,000 MG in SODIUM CHLORIDE 0.9% 100 ML IV SCH ×2 (12:22→20:19)
--- NOTE | 2017-06-24 14:25 | Hospitalist Progress Note ---
Hospitalist: Subjective Interval history: Patient has no new complaints. He denies any worsening coughing or dyspnea. Exam - Constitutional Vitals: Period Temp Pulse Resp BP Sys/Law Pulse Ox Last 24 Hr 97.7 F-99.6 F 57-75 18-21 100-141/61-81 96-100 General appearance: no acute distress, over weight - Head Head exam: Present: normal inspection - Eye Eye exam: Present: EOMI Pupils: Present: JOSE MARIA - Respiratory Respiratory exam: Present: decreased breath sounds. Absent: prolonged expiratory phase, rales, rhonchi, wheezes - Cardiovascular Cardiovascular exam: Present: regular rate and rhythm - GI/Abdominal GI/Abdominal exam: Present: normal bowel sounds, soft. Absent: tenderness - Extremities Exam Extremities exam: Absent: edema Results - Labs CBC & BMP: 06/24/17 06:11 06/24/17 06:11 - Impressions Active Issues: 1. [place] pneumonia 2. Tobacco use, counselled; does not want to quit 3. ETOH dependence 4. COPD without exacerbation 5. H/o head and neck cancer Plan: Continue antibiotics; await results of sputum AFB; appreciate help from pulmonary; continue thiamine/folate/alberta; bronchodilators/inhaled steroids Quality Measures - VTE Contraindication to Pharmacological VTE Prophylaxis: Clinical assessment deems Pt at low risk, no prophalaxis needed
[2017-06-24] MEDS: LEVOFLOXACIN INJ 750 MG in PREMIX 1 EACH IV SCH (18:00)
[2017-06-25] MEDS: ALBUTEROL/IPRATROPIUM 3 ML NEB RESP TX SCH ×4 (01:31→19:05)
[2017-06-25] MEDS: AMPICILLIN/SULBACTAM 3,000 MG in SODIUM CHLORIDE 0.9% 100 ML IV SCH ×3 (03:15→21:40)
[2017-06-25] MEDS: SODIUM CHLORIDE 0.9% 1,000 ML IV SCH ×3 (03:15→21:39)
[2017-06-25] MEDS: LEVOTHYROXINE 50 MCG TABLET PO SCH (06:27)
[2017-06-25] MEDS: MULTIVITAMIN (CENTRUM) TABLET PO SCH (08:04)
[2017-06-25] MEDS: FOLIC ACID 1 MG TABLET PO SCH (08:04)
[2017-06-25] MEDS: BUDESONIDE/FORMOTEROL 160-4.5 INHALER 6 GM INH SCH ×2 (08:04→21:42)
[2017-06-25] MEDS: THIAMINE 100 MG TABLET PO SCH (08:04)
[2017-06-25] MEDS: PANTOPRAZOLE 40 MG TABLET PO SCH (08:04)
--- NOTE | 2017-06-25 09:56 | Hospitalist Progress Note ---
Hospitalist: Subjective Interval history: Patient states that his productive cough is unchanged. Breathing is unchanged. He has no further complaints. Exam - Constitutional Vitals: Period Temp Pulse Resp BP Sys/Law Pulse Ox Last 24 Hr 97.5 F-99.5 F 57-78 15-20 100-164/61-96 96-100 General appearance: no acute distress, under weight - Head Head exam: Present: normal inspection - Eye Eye exam: Present: EOMI Pupils: Present: JOSE MARIA - ENT ENT exam: Present: normal oropharynx - Respiratory Respiratory exam: Present: decreased breath sounds. Absent: rales (decreased breath sounds more at the base, R>L), rhonchi, wheezes - Cardiovascular Cardiovascular exam: Present: regular rate and rhythm - GI/Abdominal GI/Abdominal exam: Present: normal bowel sounds, soft. Absent: tenderness - Extremities Exam Extremities exam: Absent: edema - Neurological Exam Neurological exam: Present: alert, oriented X3 - Psychiatric Psychiatric exam: Present: normal affect, normal mood Results - Labs CBC & BMP: 06/24/17 06:11 06/24/17 06:11 - Impressions Active Issues: 1. [place] pneumonia 2. Tobacco use, counselled; does not want to quit 3. ETOH dependence, stable; no DTs 4. COPD without exacerbation 5. H/o head and neck cancer Plan: Continue antibiotics; await results of sputum AFB; appreciate help from pulmonary; continue thiamine/folate/[place]; bronchodilators/inhaled steroids; add anti tussive therapy DVT prophalaxis with lovenox. Quality Measures - VTE Contraindication to Pharmacological VTE Prophylaxis: Clinical assessment deems Pt at low risk, no prophalaxis needed
--- NOTE | 2017-06-25 10:41 | EKG Report ---
Stationary ECG Study [facility] ER Test Date: 06/23/2017 3:09:48 PM Pat Name: MIA GREEN Department: Room: 329 Gender: M Utility Teller: : 1955 Requested by: Noam Hays Order Number: [id number] Manuel MD: NAYELY KEMP Intervals [place] Rate: 58 P: 86 MI: 171 QRS: 71 QRSD: 97 T: 82 QT: 422 QTc: 418 Interpretive Statements SINUS RHYTHM RIGHT ATRIAL ENLARGEMENT TALL T-WAVES, Electronically Signed On 06-25-17 11:19:53 CDT by NAYELY KEMP [email or web address]
[2017-06-25] MEDS: ENOXAPARIN 40 MG/0.4 ML SYRINGE SUBCUT SCH (11:01)
--- NOTE | 2017-06-25 11:39 | Pulmonology Progress Note ---
Pulmonary - PN: Subj Interval history: 62-year-old man with COPD and a left upper lobe pneumonia. He has had previous laryngeal carcinoma with radiation and difficulty with his voice. Today he is feeling a little better but still coughing. Seems to be eating a little better. Exam (Progress Note) - Constitutional Vitals: Period Temp Pulse Resp BP Sys/Law Pulse Ox Last 24 Hr 97.5 F-99.5 F 64-78 15-20 123-164/71-96 96-100 Exam: Patient is alert responsive. Vital signs normal. Pupils react to light. Throat is clear. Voice is high-pitched. Neck supple with post radiation changes noted on the skin. Chest reveals bilateral expiratory wheezes and rhonchi. Heart normal rate and rhythm no murmurs. Abdomen soft nontender no masses. Extremities no clubbing cyanosis or edema. Calves nontender. Results - Labs CBC & BMP: 06/24/17 06:11 06/24/17 06:11 Lab Results: I have reviewed the past 24 hour labs - Diagnostic Findings Procedure: Chest x-ray: image reviewed by me (Hyperinflation with a left upper lobe pneumonia.) Assessment and Plan (1) COPD (chronic obstructive pulmonary disease) Status: Acute Assessment and plan: Continuing bronchodilator steroids antibiotics. Needs a few more days of treatment. Current Visit: Yes (2) Left upper lobe pneumonia Status: Acute Assessment and plan: Likely this is the cause of the infiltrate in the left upper lobe. Needs follow -up with x-rays in 6 weeks or so. Current Visit: Yes (3) History of head and neck cancer Status: Acute Assessment and plan: He has had laryngeal radiation for laryngeal carcinoma. Has some difficulty with his speech as a result of that. May cause some swallowing problems as well. Current Visit: Yes
[2017-06-25] MEDS: LEVOFLOXACIN INJ 750 MG in PREMIX 1 EACH IV SCH (18:02)
[2017-06-26] MEDS: AMPICILLIN/SULBACTAM 3,000 MG in SODIUM CHLORIDE 0.9% 100 ML IV SCH ×3 (05:08→20:25)
[2017-06-26 06:26] LABS: Basophils % 0.8 % (0.0-0.8); Eosinophils # 0.1 10*3/uL (0.0-0.87); Eosinophils % 2.4 % (0.00-10.9); Hematocrit 32.7 VOL% (42.0-52.0); Hemoglobin 11.2 GM/DL (14.0-18.0); Immature Granulocytes % 0.8 %; Immature Granulocytes Absolute 0.03 #; Lymphocytes # 1.4 10*3/uL (1.4-4.0); Lymphocytes % 35.7 % (21.2-54.2); Mean Corpuscular HGB Conc 34.3 GM/DL (32-36); Mean Corpuscular Hemoglobin 32 PG (27-34); Mean Corpuscular Volume 93.2 FL (87-102); Mean Platelet Volume 9.1 FL (9.6-12.0); Monocytes # 0.6 10*3/uL (0.11-0.8); Monocytes % 15.6 % (1.7-12.7); Neutrophils # 1.7 10*3/uL (1.4-7.4); Neutrophils % 44.7 % (38.7-73.9); Platelet Count 336 T/CUMM (130-400); Red Blood Count 3.51 MC/CUMM (3.8-5.5); Red Cell Distribution Width 15.1 % (9.3-17.3); White Blood Count 3.8 T/CUMM (4-12)
[2017-06-26] MEDS: ALBUTEROL/IPRATROPIUM 3 ML NEB RESP TX SCH ×4 (07:01→20:15)
[2017-06-26 07:53] LABS: Hypochromasia Slight; Lymphocytes 28 % (20-55); Platelet Estimate Adequate; Segmented Neutrophils 58 % (50-85); Total Cells Counted 100
[2017-06-26] MEDS: MULTIVITAMIN (CENTRUM) TABLET PO SCH (08:02)
[2017-06-26] MEDS: THIAMINE 100 MG TABLET PO SCH (08:02)
[2017-06-26] MEDS: SODIUM CHLORIDE 0.9% 1,000 ML IV SCH (08:02)
[2017-06-26] MEDS: PANTOPRAZOLE 40 MG TABLET PO SCH (08:03)
[2017-06-26] MEDS: LEVOTHYROXINE 50 MCG TABLET PO SCH (08:03)
[2017-06-26] MEDS: FOLIC ACID 1 MG TABLET PO SCH (08:03)
[2017-06-26] MEDS: BUDESONIDE/FORMOTEROL 160-4.5 INHALER 6 GM INH SCH ×2 (08:05→22:10)
[2017-06-26] MEDS: ENOXAPARIN 40 MG/0.4 ML SYRINGE SUBCUT SCH (09:35)
--- NOTE | 2017-06-26 10:41 | Hospitalist Progress Note ---
Assessment and Plan (1) Dehydration Status: Resolved Assessment and plan: Patient is eating and drinking. Find status appears to be improved. Current Visit: No (2) COPD (chronic obstructive pulmonary disease) Status: Chronic Assessment and plan: Continue antibiotics and bronchodilators. Sputum cultures have been unremarkable. Current Visit: Yes (3) Left upper lobe pneumonia Status: Acute Assessment and plan: Continue with antibiotics. Current Visit: Yes (4) Tobacco abuse Status: Chronic Current Visit: Yes (5) History of head and neck cancer Status: Chronic Current Visit: Yes Hospitalist: Subjective Interval history: The patient is resting comfortably. No fevers or chills. No coughing. Has been receiving antibiotics for pneumonia that continues to show signs of improvement. Exam - Constitutional Vitals: Period Temp Pulse Resp BP Sys/Law Pulse Ox Last 24 Hr 98.1 F-99 F 55-80 16-22 111-133/64-77 97-100 General appearance: under weight - Head Head exam: Present: normal inspection - Eye Pupils: Present: JOSE MARIA - Respiratory Respiratory exam: Present: clear to auscultation bilaterally - Cardiovascular Cardiovascular exam: Present: regular rate and rhythm - GI/Abdominal GI/Abdominal exam: Present: normal bowel sounds - Extremities Exam Extremities exam: Present: normal inspection - Neurological Exam Neurological exam: Present: alert, oriented X3, CN II-XII intact - Psychiatric Psychiatric exam: Present: normal affect, normal mood Results - Labs CBC & BMP: 06/26/17 05:49 06/24/17 06:11 Quality Measures - VTE Contraindication to Pharmacological VTE Prophylaxis: Clinical assessment deems Pt at low risk, no prophalaxis needed
--- NOTE | 2017-06-26 11:08 | Pulmonology Progress Note ---
Pulmonary - PN: Subj Interval history: 62-year-old man with COPD and a left upper lobe pneumonia. He has had previous laryngeal carcinoma with radiation and difficulty with his voice. Today he is feeling a little better but still coughing. Seems to be eating a little better. 06/26/2017 patient is feeling a little bit better. Combination of COPD, left upper lobe pneumonia, and previous radiation for laryngeal carcinoma makes it difficult for him to expectorate sputum. Exam (Progress Note) - Constitutional Vitals: Period Temp Pulse Resp BP Sys/Law Pulse Ox Last 24 Hr 98.1 F-99 F 55-80 16-22 111-133/64-77 97-100 Exam: Patient is alert responsive. Vital signs normal. Pupils react to light. Throat is clear. Voice is high-pitched. Neck supple with post radiation changes noted on the skin. Chest reveals bilateral expiratory rhonchi. Heart normal rate and rhythm no murmurs. Abdomen soft nontender no masses. Extremities no clubbing cyanosis or edema. Calves nontender. Results - Labs CBC & BMP: 06/26/17 05:49 06/24/17 06:11 Lab Results: I have reviewed the past 24 hour labs Assessment and Plan (1) COPD (chronic obstructive pulmonary disease) Status: Chronic Assessment and plan: Continuing bronchodilator steroids antibiotics. Needs a few more days of treatment. 06/26/2017 continuing with bronchodilators, steroids, antibiotics. Recheck x- ray tomorrow Current Visit: Yes (2) Left upper lobe pneumonia Status: Acute Assessment and plan: Likely this is the cause of the infiltrate in the left upper lobe. Needs follow -up with x-rays in 6 weeks or so. Current Visit: Yes (3) History of head and neck cancer Status: Chronic Assessment and plan: He has had laryngeal radiation for laryngeal carcinoma. Has some difficulty with his speech as a result of that. May cause some swallowing problems as well. 06/26/2017 history of laryngeal carcinoma with radiation. Makes it difficult to clear sputum. Current Visit: Yes
[2017-06-26] MEDS: methylPREDNISolone SOD SUC 40 MG/1 ML VIAL IV SCH ×2 (11:32→23:57)
[2017-06-26] MEDS: LEVOFLOXACIN INJ 750 MG in PREMIX 1 EACH IV SCH (18:25)
[2017-06-27] MEDS: ALBUTEROL/IPRATROPIUM 3 ML NEB RESP TX SCH ×4 (00:15→19:03)
[2017-06-27] MEDS: AMPICILLIN/SULBACTAM 3,000 MG in SODIUM CHLORIDE 0.9% 100 ML IV SCH ×3 (04:27→22:08)
[2017-06-27] MEDS: LEVOTHYROXINE 50 MCG TABLET PO SCH (06:11)
--- NOTE | 2017-06-27 08:51 | XRay Report ---
Exam: XR chest 1V portable Date: 06/27/2017 4:00 AM Indication: Left upper lobe pneumonia Comparison: 06/23/2017 Technical: AP Findings: Left upper lobe infiltrate is present with some focal consolidation. Underlying component of COPD is present. The heart is normal in size. The bony structures are intact. Impression: 1. Persistent left upper lobe pneumonic infiltrate slightly improved when compared to the previous exam PROCEDURE INTERPRETED AT [facility] DEPARTMENT OF RADIOLOGY Final Report Signed by: Dr. Cyrus Chow
[2017-06-27] MEDS: PANTOPRAZOLE 40 MG TABLET PO SCH (09:53)
[2017-06-27] MEDS: THIAMINE 100 MG TABLET PO SCH (09:53)
[2017-06-27] MEDS: MULTIVITAMIN (CENTRUM) TABLET PO SCH (09:53)
[2017-06-27] MEDS: BUDESONIDE/FORMOTEROL 160-4.5 INHALER 6 GM INH SCH ×2 (09:54→22:09)
[2017-06-27] MEDS: FOLIC ACID 1 MG TABLET PO SCH (09:54)
--- NOTE | 2017-06-27 11:26 | Hospitalist Progress Note ---
Assessment and Plan (1) Left upper lobe pneumonia Status: Acute Assessment and plan: 1)pneumonia- improving, continue IV antibiotics. Needs follow up CXR after discharge to document resolution. At risk for lung cancer also. 2)COPD 3)malnutrition- encourage oral intake. 4)homeless 5)weakness- general debil- consult to swing bed. 6)smoker with history of head and neck cancer- counselled to stop for 5 minutes. Current Visit: Yes (2) Weakness Status: Acute Current Visit: No (3) COPD (chronic obstructive pulmonary disease) Status: Chronic Current Visit: Yes (4) Diabetes Status: Acute Current Visit: No (5) History of head and neck cancer Status: Chronic Current Visit: Yes Hospitalist: Subjective Interval history: Mr Castellon is feeling much better than on admission. He says he is breathing comfortably off O2 now. He continues to cough. He is weak and thin but says his appetite is improving and he rested ok last night. Exam - Constitutional Vitals: Period Temp Pulse Resp BP Sys/Law Pulse Ox Last 24 Hr 97.0 F-98.3 F 61-88 16-24 102-122/64-70 97-100 General appearance: no acute distress, under weight - Eye Eye exam: Present: EOMI. Absent: scleral icterus - Respiratory Respiratory exam: Present: rales (Left upper zone, mild wheeze). Absent: wheezes - Cardiovascular Cardiovascular exam: Present: regular rate and rhythm - GI/Abdominal GI/Abdominal exam: Present: normal bowel sounds, soft. Absent: tenderness - Extremities Exam Extremities exam: Absent: edema Results - Labs CBC & BMP: 06/26/17 05:49 06/24/17 06:11 Lab Results: I have reviewed the past 24 hour labs Quality Measures - VTE Contraindication to Pharmacological VTE Prophylaxis: Clinical assessment deems Pt at low risk, no prophalaxis needed
[2017-06-27] MEDS: ENOXAPARIN 40 MG/0.4 ML SYRINGE SUBCUT SCH (11:27)
[2017-06-27] MEDS: methylPREDNISolone SOD SUC 40 MG/1 ML VIAL IV SCH ×2 (11:28→22:45)
--- NOTE | 2017-06-27 14:40 | Pulmonology Progress Note ---
Pulmonary - PN: Subj Interval history: Patient is a 62-year-old white man that apparently is homeless but he is able to smoke and drink alcohol a lot. He came in with some chest congestion and left upper lobe pneumonia. 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 He has been on IV antibiotics and says he is feeling better. He is coughing some but his shortness of breath is better. He is not having any fever. He has a negative PPD. His chest x-ray looks better today. Exam (Progress Note) - Constitutional Vitals: Period Temp Pulse Resp BP Sys/Law Pulse Ox Last 24 Hr 97.0 F-98.3 F 61-88 17-24 102-122/64-70 97-100 Exam: General appearance: no acute distress (He is hoarse but looks comfortable lying in bed. He is not having any fever or respiratory distress.), under weight - Head Head exam: Present: normal inspection, normocephalic - Eye Eye exam: Present: EOMI. Absent: scleral icterus Pupils: Present: JOSE MARIA - ENT ENT exam: Present: other (He does have some hoarseness) - Neck Neck exam: Absent: lymphadenopathy, thyromegaly - Respiratory Respiratory exam: Present: He has somewhat distant breath sounds bilaterally but is moving air okay without any wheezing. - Cardiovascular Cardiovascular exam: Present: regular rate and rhythm. Absent: gallop, systolic murmur - GI/Abdominal GI/Abdominal exam: Present: soft. Absent: distended, organomegaly, tenderness - Extremities Exam Extremities exam: Absent: calf tenderness, edema - Neurological Exam Neurological exam: Present: alert, oriented X3, CN II-XII intact - Psychiatric Psychiatric exam: Present: normal affect - Skin Skin exam: Present: warm, dry Results - Labs CBC & BMP: 06/26/17 05:49 06/24/17 06:11 - Diagnostic Findings Procedure: Chest x-ray: image reviewed by me, report reviewed by me (Chest x- ray shows less consolidation in the left apex.) Assessment and Plan (1) Alcohol dependence Status: Chronic Assessment and plan: The patient apparently has alcohol abuse but so far he has not had any signs of DTs. Current Visit: No (2) COPD (chronic obstructive pulmonary disease) Status: Chronic Assessment and plan: The patient is a smoker with COPD and will continue with bronchodilator therapy. He says his breathing is doing better. Current Visit: Yes (3) Tobacco use disorder, continuous Status: Acute Assessment and plan: He says he does not want to try nicotine patch at present Current Visit: No (4) Left upper lobe pneumonia Status: Acute Assessment and plan: The patient has a left upper lobe pneumonia that has been fairly indolent. His PPD is negative and cultures are negative so far. His chest x-ray looks like is improving. We will continue antibiotics. Current Visit: Yes (5) History of head and neck cancer Status: Chronic Assessment and plan: The patient has a history of head and neck cancer. Current Visit: Yes
[2017-06-27] MEDS: LEVOFLOXACIN INJ 750 MG in PREMIX 1 EACH IV SCH (18:15)
[2017-06-28] MEDS: ALBUTEROL/IPRATROPIUM 3 ML NEB RESP TX SCH ×4 (03:36→20:21)
[2017-06-28] MEDS: AMPICILLIN/SULBACTAM 3,000 MG in SODIUM CHLORIDE 0.9% 100 ML IV SCH ×3 (06:12→21:01)
[2017-06-28] MEDS: LEVOTHYROXINE 50 MCG TABLET PO SCH (06:12)
[2017-06-28 07:36] LABS: Calcium 8.5 MG/DL (8.5-10.1); Osmolality,Calculated 280.7 MOS/KG (273-304); Potassium 4.3 MMOL/L (3.5-5.1)
[2017-06-28] MEDS: THIAMINE 100 MG TABLET PO SCH (10:03)
[2017-06-28] MEDS: BUDESONIDE/FORMOTEROL 160-4.5 INHALER 6 GM INH SCH ×2 (10:03→21:01)
[2017-06-28] MEDS: FOLIC ACID 1 MG TABLET PO SCH (10:04)
[2017-06-28] MEDS: MULTIVITAMIN (CENTRUM) TABLET PO SCH (10:04)
[2017-06-28] MEDS: PANTOPRAZOLE 40 MG TABLET PO SCH (10:04)
[2017-06-28] MEDS: ENOXAPARIN 40 MG/0.4 ML SYRINGE SUBCUT SCH (10:05)
--- NOTE | 2017-06-28 11:04 | Hospitalist Progress Note ---
Assessment and Plan (1) Left upper lobe pneumonia Status: Acute Assessment and plan: 1)Pseudomonas pneumonia- improving, continue IV Zosyn and levaquin. Needs follow up CXR after discharge to document resolution. At risk for lung cancer also. Decrease steroids to 20mg IV q12h. On day 4 of IV antibiotics. Awaiting swing bed placement. 2)COPD 3)malnutrition- encourage oral intake. 4)homeless 5)weakness- general debil- consult to swing bed. 6)smoker with history of head and neck cancer- counselled to stop for 5 minutes. today counselled alcohol cessation. Current Visit: Yes (2) Weakness Status: Acute Current Visit: No (3) COPD (chronic obstructive pulmonary disease) Status: Chronic Current Visit: Yes (4) Diabetes Status: Acute Current Visit: No (5) History of head and neck cancer Status: Chronic Current Visit: Yes Hospitalist: Subjective Interval history: Mr Castellon is feeling ok this morning. He is able to move around the room without shortness of breath. He continues to cough occ, but it is improved. His sputum has grown pseudomonas. Exam - Constitutional Vitals: Period Temp Pulse Resp BP Sys/Law Pulse Ox Last 24 Hr 97.5 F-98.9 F 63-85 16-20 107-139/57-73 92-100 General appearance: no acute distress, under weight - Eye Eye exam: Present: EOMI. Absent: scleral icterus - Respiratory Respiratory exam: Present: rales (few in upper left zone, no wheezes) - Cardiovascular Cardiovascular exam: Present: regular rate and rhythm - GI/Abdominal GI/Abdominal exam: Present: normal bowel sounds, soft. Absent: tenderness - Extremities Exam Extremities exam: Absent: edema - Neurological Exam Neurological exam: Present: alert, oriented X3 - Skin Skin exam: Present: warm, dry Results - Labs CBC & BMP: 06/26/17 05:49 06/28/17 06:26 Lab Results: I have reviewed the past 24 hour labs Quality Measures - VTE Contraindication to Pharmacological VTE Prophylaxis: Clinical assessment deems Pt at low risk, no prophalaxis needed Specialty Discharge - Follow Up or Referrals
[2017-06-28] MEDS: methylPREDNISolone SOD SUC 40 MG/1 ML VIAL IV SCH (11:44)
--- NOTE | 2017-06-28 12:38 | Pulmonology Progress Note ---
Pulmonary - PN: Subj Interval history: Patient is a 62-year-old white man that apparently is homeless but he is able to smoke and drink alcohol a lot. He came in with some chest congestion and left upper lobe pneumonia. 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 He has been on IV antibiotics and says he is feeling better. He is coughing some but his shortness of breath is better. He is not having any fever. He has a negative PPD. His chest x-ray looks better today. He is sitting up today and eating breakfast and looks like he feels better. He still has some cough and congestion but overall he is breathing better. Exam (Progress Note) - Constitutional Vitals: Period Temp Pulse Resp BP Sys/Law Pulse Ox Last 24 Hr 97.5 F-98.9 F 63-85 16-20 107-139/57-73 92-100 Exam: General appearance: no acute distress (He is hoarse but looks comfortable lying in bed. He is not having any fever or respiratory distress.), under weight - Head Head exam: Present: normal inspection, normocephalic - Eye Eye exam: Present: EOMI. Absent: scleral icterus Pupils: Present: JOSE MARIA - ENT ENT exam: Present: other (He does have some hoarseness) - Neck Neck exam: Absent: lymphadenopathy, thyromegaly - Respiratory Respiratory exam: Present: He has somewhat distant breath sounds bilaterally but is moving air okay without any wheezing. His lungs sound reasonably clear at present. - Cardiovascular Cardiovascular exam: Present: regular rate and rhythm. Absent: gallop, systolic murmur - GI/Abdominal GI/Abdominal exam: Present: soft. Absent: distended, organomegaly, tenderness - Extremities Exam Extremities exam: Absent: calf tenderness, edema - Neurological Exam Neurological exam: Present: alert, oriented X3, CN II-XII intact - Psychiatric Psychiatric exam: Present: normal affect - Skin Skin exam: Present: warm, dry Results - Labs CBC & BMP: 06/26/17 05:49 06/28/17 06:26 Assessment and Plan (1) Alcohol dependence Status: Chronic Assessment and plan: The patient apparently has alcohol abuse but so far he has not had any signs of DTs. Current Visit: No (2) COPD (chronic obstructive pulmonary disease) Status: Chronic Assessment and plan: The patient is a smoker with COPD and will continue with bronchodilator therapy. He says his breathing is doing better. He is reasonably comfortable at present. Current Visit: Yes Qualifiers: COPD type: emphysema (3) Tobacco use disorder, continuous Status: Acute Assessment and plan: He says he does not want to try nicotine patch at present Current Visit: No (4) Left upper lobe pneumonia Status: Acute Assessment and plan: The patient has a left upper lobe pneumonia that has been fairly indolent. His PPD is negative and cultures are negative so far. His chest x-ray looks like is improving. We will continue antibiotics. He is doing better overall. Current Visit: Yes (5) History of head and neck cancer Status: Chronic Assessment and plan: The patient has a history of head and neck cancer. Current Visit: Yes Specialty Discharge - Follow Up or Referrals
[2017-06-28] MEDS: LEVOFLOXACIN INJ 750 MG in PREMIX 1 EACH IV SCH (17:30)
[2017-06-29] MEDS: methylPREDNISolone SOD SUC 40 MG/1 ML VIAL IV SCH ×2 (00:44→11:40)
[2017-06-29] MEDS: ALBUTEROL/IPRATROPIUM 3 ML NEB RESP TX SCH ×2 (01:29→07:00)
[2017-06-29] MEDS: AMPICILLIN/SULBACTAM 3,000 MG in SODIUM CHLORIDE 0.9% 100 ML IV SCH ×2 (03:58→11:40)
[2017-06-29] MEDS: LEVOTHYROXINE 50 MCG TABLET PO SCH (06:03)
[2017-06-29] MEDS: ENOXAPARIN 40 MG/0.4 ML SYRINGE SUBCUT SCH (08:59)
[2017-06-29] MEDS: PANTOPRAZOLE 40 MG TABLET PO SCH (08:59)
[2017-06-29] MEDS: BUDESONIDE/FORMOTEROL 160-4.5 INHALER 6 GM INH SCH (08:59)
[2017-06-29] MEDS: FOLIC ACID 1 MG TABLET PO SCH (08:59)
[2017-06-29] MEDS: THIAMINE 100 MG TABLET PO SCH (08:59)
[2017-06-29] MEDS: MULTIVITAMIN (CENTRUM) TABLET PO SCH (08:59)
--- NOTE | 2017-06-29 10:37 | Discharge Summary ---
Hospital Course - Hospital Course Hospital Course: 62-year-old white male with history of alcohol and tobacco abuse, throat cancer status post radiation therapy admitted by the hospitalist service on 06/23/2017 with left upper lobe Pseudomonas pneumonia. He had recently been hospitalized in May with the same thing but he did not follow-up or take any of his antibiotics. Patient received antibiotics and breathing treatments and he is feeling much better. His chest x-ray is improved, he has a negative PPD and he is not having any fevers. Patient was encouraged to stop smoking and drinking and he agrees. 5-8 minutes was spent discussing smoking cessation by various physicians. He will be discharged home on p.o. antibiotics and a steroid taper. He will need to follow-up with Dr. Sevilla in 1 month with a chest x- ray. Complete discharge instructions were given to the patient. Care coordination, chart review, and completed discharge paperwork took approximately 35 minutes. - Time spent with patient Time with patient DS: Greater than 30 minutes Diagnosis - Discharge Diagnosis (1) Alcohol dependence Status: Chronic (2) Weakness Status: Resolved (3) COPD (chronic obstructive pulmonary disease) Status: Chronic (4) Tobacco use disorder, continuous Status: Chronic (5) Left upper lobe pneumonia Status: Resolved Specialty Discharge - Follow Up or Referrals Discharge Plan - Discharge Data Disposition: Disch To Home/Self Care Condition at Discharge: Stable Discharge Diet: advance to your usual diet Activity: resume usual activities as tolerated Contact your physician if you experience:: fever over 101, Shortness of breath - Discharge Medications New methylPREDNISolone DOSEPAK [Medrol Dosepak] See Taper PO DIRECTED #1 pack Levofloxacin Tab [Levaquin Tab] 750 mg PO DAILY #7 tablet Continue Budesonide/Formoterol 160-4.5 [Symbicort 160-4.5] 2 puff INH BID Levothyroxine Tab [Synthroid Tab] 50 mcg PO DAILY@0700 chlordiazePOXIDE [Librium] 10 mg PO TID PRN #20 capsule PRN Reason: Alcohol Withdrawal Folic Acid Tab 1 mg PO DAILY #30 tablet Multivitamin (Centrum) [Centrum Tab] 1 tablet PO DAILY #30 tablet Pantoprazole Tab [Protonix Tab] 40 mg PO DAILY #30 tablet Thiamine Tab [Vitamin B1 Tab] 100 mg PO DAILY #30 tablet HYDROcodone/ACETAMIN 5-325 [[place] 5-325] 1 tablet PO Q6H PRN #14 tablet PRN Reason: Left rib pain Albuterol/Ipratropium Neb [Duoneb] 3 ml RESP TX RT Q6H #7 - Follow Up or Referral Follow Up: Kye Sevilla MD [Physician] - 1 Month (w CXR) - Forms/Instructions Instructions: Chronic Obstructive Pulmonary Disease (DC), Pneumonia (DC) Exam - Constitutional Vitals: Period Temp Pulse Resp BP Sys/Law Pulse Ox Last 24 Hr 97.0 F-98.9 F 67-78 18-20 107-153/61-80 96-99 Exam: 62-year-old white male, no acute distress, alert and oriented Chest clear CV regular rate and rhythm Abdomen soft and nontender Extremities no edema Discharge Results Procedures and tests throughout hospitalization: Pending Orders 06/23/17 17:37 AFB Culture/Smears Routine 06/26/17 04:00 Sputum Culture and Gram Stain 06/26/17 11:34 Sputum Culture and Gram Stain Routine Labs on day of discharge: Preliminary micro results at discharge 06/26/17 11:34 Sputum Culture - Preliminary Sputum - Expectorated Gram Negative Rods DS: Provider Date of admission: 06/23/17 17:04 Primary care physician: . No PCP Attending physician on admission: Terrance Arnold MD Consults: 06/23/17 17:27 Consult to Physician [CONS] Routine Comment: Consulting Provider: Kye Sevilla Consulting Provider Notified: Yes When should Consulting Provider be notified: Now Person Notified: sultana melvin Date Notified: 06/24/17 Time Notified: 09:08 06/23/17 17:30 Consult to Case Mgmt/Social Srvs [CONS] Routine Reason for Case Mgmt/Social Srvs: Swingbed/SNF/[facility] Consult Comment: NH placement Discharging clinician: SENG Espinal Expected date of discharge: 06/29/17
[2017-06-29 10:59] VITALS: BP 107/61
== END 2017-06-29 13:40 | disposition home or self-care (01) | DRG 140 ==
LOC: N.ED 14:55 → N.EDINP 17:04 → SUATTDRO 17:04 → N.3E 19:45
PROVIDERS: ADMIT Internal Medicine; ATTEND Internal Medicine